=== PATIENT | female | born 1955 | race Caucasian/White ===

== ENCOUNTER → 2017-12-17 11:38 | Outpatient (CLI) | payer OTHER, SELFPAY ==
--- NOTE | 2017-12-17 | DI.MG.S_ITS ---
BILATERAL DIGITAL SCREENING MAMMOGRAM 3D/2D WITH CAD: 12/17/2017 CLINICAL: Routine screening. Comparison is made to exams dated: 10/18/2016 mammogram, 10/05/2015 mammogram, and 08/02/2014 mammogram - [facility]. There are scattered fibroglandular elements in both breasts. Current study was also evaluated with a Computer Aided Detection (CAD) system. No significant masses, calcifications, or other findings are seen in either breast. There has been no significant interval change. IMPRESSION: NEGATIVE There is no mammographic evidence of malignancy. A 1 year screening mammogram is recommended. This exam was interpreted at Station ID: [id number]. NOTE: For mammograms, a report in lay terms will be sent to the patient. Approximately 15% of breast malignancies will not be visualized mammographically. In the management of a palpable breast mass, a negative mammogram must not discourage biopsy of a clinically suspicious lesion. Electronically Signed By: Juni collado/[email or web address]:12/17/2017 21:54:53 letter sent: Normal Exam ACR BI-RADS Category 1: Negative [id number]
== END ==
PROVIDERS: Family Provider Psychiatry & Neurology Psychiatry; PCP Family Medicine; Visit Provider Family Medicine
DX: Z12.31 Encounter for screening mammogram for malignant neoplasm of breast (principal)
CPT/HCPCS: 77063; 77067

== ENCOUNTER → 2018-03-24 10:56 | Outpatient (CLI) | payer OTHER, SELFPAY ==
--- NOTE | 2018-03-24 | DI.RAD.S_ITS ---
PROCEDURE: XR CHEST 2V INDICATIONS: COUGH TECHNIQUE: 2 views of the chest were acquired. COMPARISON: [facility], , CHEST 1 VIEW, 06/07/2008, 18:00. FINDINGS: Surgical changes and devices: None. Lungs and pleura: Lungs are clear. No pleural effusions or pneumothorax. Mediastinum: Mediastinal contours are normal. Heart size is normal. Bones and chest wall: No suspicious bony abnormalities. Soft tissues appear unremarkable. IMPRESSION: No acute cardiopulmonary disease. Dictated by: Rosaura Mckinnon M.D. on 03/24/2018 at 12:14 Approved by: Rosaura Mckinonn M.D. on 03/24/2018 at 12:16
== END ==
PROVIDERS: Family Provider Psychiatry & Neurology Psychiatry; PCP Family Medicine; Visit Provider Family Medicine
DX: R05 Cough (principal)
CPT/HCPCS: 71046

== ENCOUNTER 2018-05-26 09:01 | Emergency (ER) | payer OTHER, SELFPAY ==
[2018-05-26 09:05] VITALS: BP 142/83; PULSE 104; RESP 19; TEMP 36.7; O2SAT 100
[2018-05-26 09:31] VITALS: BP 107/79; PULSE 98; RESP 22; O2SAT 96
--- NOTE | 2018-05-26 09:47 | ED.NEUROSD ---
HPI - Neuro Symptoms/Deficit General Chief Complaint: Neuro Symptoms/Deficit Stated Complaint: NUMBNESS/PAIN LEFT ARM/ARMPIT Time Seen by Provider: 05/26/18 09:15 Source: patient and old records reviewed Mode of arrival: ambulatory Limitations: no limitations History of Present Illness HPI Narrative: This a 63-year-old female comes to the emergency department with complaint of left-sided numbness in her face upper extremity and leg. Patient is also complaining of left groin pain patient states it all started on Friday. She states started Friday evening. She complains of pain mainly in the groin a little bit down the leg towards the toes but mostly in the groin. She states Friday she could lift her arm or leg. She states that she went to [facility] she told me she had a CT scan IV but they told her there was nothing they could do for her and sent her home. She is also complaining of tenderness, and that she can feel her heartbeat in her ears. She is also complaining of problems swallowing although she has been swallowing and eating food. Patient also is not having any difficulty with secretions in the department. No changes to speech. She states that she has not had any fevers, no chills. She has been taking seeing Dermatology and started spironolactone about 2 weeks ago. She denies any vision changes, no chest pain or shortness of breath, no nausea no vomiting. She is typically mildly constipated but is having regular bowel movements. She has had some frequency and chronic urinary incontinence but no new urinary changes. She denies any trauma or injuries. 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 She denies any swelling thought maybe there was a lump in her groin but she is unsure if there really is. Patient states she took some gabapentin last night this sort of made her loopy. She takes medication for ADHD, depression and has history of degenerative joint disease. She has had surgery for ovarian cyst, x2, cholecystectomy, hysterectomy and breast reduction. She quit smoking about 6 weeks ago. Denies any EtOH. She has CBD oil occasionally. Kaylin Blood is her primary care. On Anticoagulants: No Related Data Home Medications Medication Instructions Recorded Confirmed dextroamphetamine-amphetamine 10 mg PO BID #1 01/18/11 05/26/18 [Adderall XR] lamotrigine [Lamictal] 200 mg PO QDAY #0 01/18/11 05/26/18 desonide 1 applic TOPICAL BID 05/26/18 05/26/18 escitalopram oxalate [Lexapro] 20 mg PO DAILY 05/26/18 05/26/18 spironolactone 25 mg PO BID 05/26/18 05/26/18 Allergies Allergy/AdvReac Type Severity Reaction Status Date / Time codeine Allergy Severe THROAT Verified 05/26/18 09:20 CLOSES Penicillins Allergy Unknown Verified 05/26/18 09:20 Review of Systems Review of Systems ROS Unobtainable: All systems reviewed & are unremarkable except as noted in HPI and below Constitutional Denies body ache(s), Denies chills, Denies fever(s), Denies frequent falls, Denies headache(s), Denies lethargy and Denies weakness Eyes Denies change in vision ENT Ears, Nose, Mouth, and Throat: Denies abnormal hearing, Reports dysphagia (swallowing secretions), Denies vertigo, Denies dizziness, Denies headache(s), Denies hoarseness and Denies nasal congestion Cardiovascular Denies chest pain, Denies diaphoresis, Denies edema, Denies irregular heart rhythm, Denies leg edema, Denies lightheadedness, Denies radiating jaw, neck or arm pain, Denies palpitations, Denies dyspnea, Denies dyspnea on exertion and Denies orthopnea Respiratory Denies change in phlegm color, Denies chest congestion, Denies cough, Denies dyspnea, Denies dyspnea on exertion and Denies wheezing Gastrointestinal Gastrointestinal: Denies abdominal pain, Reports constipation (chronic, has regular bowel movements), Reports dysphagia (swallowing secretions), Denies diarrhea, Denies nausea and Denies vomiting Genitourinary Denies hematuria, Reports urinary frequency, Denies dysuria, Denies flank pain, Reports urinary incontinence (chronic) and Denies urinary urgency Musculoskeletal Reports as per HPI, Denies back pain, Denies arthralgias, Denies limited range of motion, Denies muscle cramps, Denies muscle weakness, Reports numbness and Reports other (groin pain in left) Integumentary/Breasts Denies rash, Denies unusual bruising and Denies wounds Neurologic Denies abnormal hearing, Denies abnormal speech, Denies vertigo, Denies dizziness, Denies frequent falls, Denies headache(s), Denies focal weakness, Reports numbness, Reports paresthesias (left face, arm, leg ) and Denies weakness Psychiatric Reports depression Endocrine Denies palpitations Allergic/Immunologic Denies wheezing PFSH Medical History (Updated 05/26/18 @ 10:01 by Leni Reeves DO) ADHD (Chronic) Depression (Chronic) H/O: hysterectomy (Chronic) Surgical History (Updated 05/26/18 @ 09:55 by Leni Reeves DO) History of (Chronic) Hx of cholecystectomy (Chronic) Status post breast reduction (Chronic) Social History (Updated 05/26/18 @ 09:55 by Leni Reeves DO) marital status: Smoking Status: Former smoker substance use type: marijuana Social History (Updated 05/26/18 @ 09:55 by Leni Reeves DO) marital status: Smoking Status: Former smoker substance use type: marijuana Exam Narrative Exam Narrative: GEN: well nourished, well appearing female, alert and oriented x 3, patient appears to be in mild distress. HEENT: Atraumatic, pupils are equal round reactive to light, extraocular movements are intact, nares are clear, TMs are clear with no fluid, there is no conjunctival pallor. Throat is clear without any exudates, erythema, tonsillar enlargement or uvular deviation, no facial droop. HEART: Regular rate and rhythm without murmur, clicks, rubs. Pulses are equal in upper and lower extremities LUNGS:Lungs clear to auscultation, no wheezes, rales, crackles, chest moves symmetrically ABD:bowel sounds normal, soft, non-tender, no guarding, rebound, rigidity, no masses noted, no hepatosplenomegaly :No CVA tenderness MSCL: Patient has some mild tenderness in the left inguinal region, patient has 2+ femoral pulse she has 2+ left lower extremity pulses well as right lower extremity dorsalis pedis and tibialis. no muscle atrophy, muscles strength 5/5 upper and lower extremities, patient appears uncomfortable when lifting left lower extremity. Mild tenderness over the left trochanter. full range of motion, patient ambulated into department. NEURO:CN 2-12 intact, sensation normal, reflexes 2/4 upper and lower extremities. finger nose finger test normal, heel do test normal. patient describes decreased sensation in comparison to right on the left face arm and lower extremity but has sensation to light touch. No dysarthria. Initial Vital Signs Initial Vital Signs: Vital Signs Temperature 98.1 F 05/26/18 09:05 Pulse Rate 104 H 05/26/18 09:05 Respiratory Rate 19 05/26/18 09:05 Blood Pressure 142/83 H 05/26/18 09:05 Pulse Oximetry 100 05/26/18 09:05 Scores NIH Stroke Scale Level of Conciousness: Alert, keenly responsive Ask month/age: Answers both questions correctly. Open/close eyes, close hand: Performs both tasks correctly Best gaze horizontal: Normal Visual evans: No visual loss Facial palsy: Normal symetrical movement Left arm drift: No drift for full 10 sec Right arm drift: No drift for full 10 sec Left leg drift: No drift for full 10 sec Right leg drift: No drift for full 10 sec Limb ataxia: Absent Sensory on face/arms/legs: Normal, no sensory loss Best language: No aphasia, normal Dysarthria: Normal Extinction or inattention: No abnormality Total NIH Stroke scale score: 0 Course Orders Ordered: ED Orders 05/26/18 11:40 Urine Culture Stat Urine Microscopic Stat Discontinued Medications Sodium Chloride (Normal Saline 0.9%) 1,000 mls @ 1,000 mls/hr IV BOLUS ONE Stop: 05/26/18 10:45 Last Infusion: 05/26/18 11:59 Dose: 0 mls/hr Admin: 05/26/18 10:18 Dose: 1,000 mls/hr Ketorolac Tromethamine (Toradol) 30 mg IV NOW ONE Stop: 05/26/18 09:47 Last Admin: 05/26/18 10:18 Dose: 30 mg Vital Signs - 8 hr 05/26/18 12:23 Temperature 98.1 F Pulse Rate 72 Respiratory Rate 18 Blood Pressure [Right Arm] 122/70 Pulse Oximetry 98 MDM - Neuro Symptoms/Deficit Lab Data Attestation: I reviewed the patient's lab results. Result diagrams: 05/26/18 09:20 05/26/18 09:20 Lab Results 05/26/18 05/26/18 05/26/18 Range/Units 09:20 09:20 09:20 WBC 7.8 (4.5-11.0) X10^3/uL RBC 5.13 (4.0-5.2) X10^6/uL Hgb 15.2 (12.0-16.0) g/dL Hct 45.4 (36-46) % MCV 88.5 (80-100) fL MCH 29.6 (26-34) PG MCHC 33.4 (30-36) % RDW 14.3 (11.6-14.8) % Plt Count 334 (150-400) X10^3/uL Neut % (Auto) 75.2 H (50-75) % Lymph % (Auto) 15.7 L (25-40) % Rains % (Auto) 8.9 (3-14) % Eos % (Auto) 0.0 L (2-4) % Baso % (Auto) 0.2 (0-2) % Neut # (Auto) 5900 (0209-5095) /uL Lymph # (Auto) 1200 (7566-1719) /uL Rains # (Auto) 700 (0-900) /uL Eos # (Auto) 0 (0-450) /uL Baso # (Auto) 0 (0-100) /uL PT 13.8 H (10.1-12.7) SECONDS INR 1.2 (0.9-1.3) APTT 35 (26.4-36.2) SECONDS Sodium 137 (137-145) mmol/L Potassium 4.0 (3.4-5.1) mmol/L Chloride 101 (98-107) mmol/L Carbon Dioxide 23 (22-32) mmol/L BUN 18 H (7-17) mg/dL Creatinine 0.80 (0.52-1.04) mg/dL Estimated GFR > 60.0 (>60) mL/min BUN/Creatinine Ratio 22.5 H (6-22) Glucose 92 (80-110) mg/dL Calcium 9.3 (8.4-10.2) mg/dL Total Bilirubin 0.6 (0.2-1.3) mg/dL AST 47 H (14-36) IU/L ALT 46 (9-52) IU/L Alkaline Phosphatase 152 H (38-126) U/L Total Protein 7.8 (6.3-8.2) g/dL Albumin 4.8 (3.5-5.0) g/dL Globulin 3.0 (1.7-4.1) g/dL Albumin/Globulin Ratio 1.6 (1.0-2.8) Urine RBC (0-5/HPF) Urine WBC (0-5/HPF) Ur Squamous Epith Cells Amorphous Sediment Urine Bacteria (None) Urine Mucus (Negative) Ur Culture Indicated? 05/26/18 Range/Units 11:40 WBC (4.5-11.0) X10^3/uL RBC (4.0-5.2) X10^6/uL Hgb (12.0-16.0) g/dL Hct (36-46) % MCV (80-100) fL MCH (26-34) PG MCHC (30-36) % RDW (11.6-14.8) % Plt Count (150-400) X10^3/uL Neut % (Auto) (50-75) % Lymph % (Auto) (25-40) % Rains % (Auto) (3-14) % Eos % (Auto) (2-4) % Baso % (Auto) (0-2) % Neut # (Auto) (9980-3094) /uL Lymph # (Auto) (2410-8550) /uL Rains # (Auto) (0-900) /uL Eos # (Auto) (0-450) /uL Baso # (Auto) (0-100) /uL PT (10.1-12.7) SECONDS INR (0.9-1.3) APTT (26.4-36.2) SECONDS Sodium (137-145) mmol/L Potassium (3.4-5.1) mmol/L Chloride (98-107) mmol/L Carbon Dioxide (22-32) mmol/L BUN (7-17) mg/dL Creatinine (0.52-1.04) mg/dL Estimated GFR (>60) mL/min BUN/Creatinine Ratio (6-22) Glucose (80-110) mg/dL Calcium (8.4-10.2) mg/dL Total Bilirubin (0.2-1.3) mg/dL AST (14-36) IU/L ALT (9-52) IU/L Alkaline Phosphatase (38-126) U/L Total Protein (6.3-8.2) g/dL Albumin (3.5-5.0) g/dL Globulin (1.7-4.1) g/dL Albumin/Globulin Ratio (1.0-2.8) Urine RBC None seen (0-5/HPF) Urine WBC 1-5/hpf (0-5/HPF) Ur Squamous Epith Cells 0-1 /hpf Amorphous Sediment 2+ Urine Bacteria Occasional (0-1) (None) Urine Mucus 2+ H (Negative) Ur Culture Indicated? Specimen cultured Urine Dip Bedside Urine Glucose Negative Bedside Urine Bilirubin + 1 Bedside Urine Ketone +++ 80 Urine Specific [place] 1.030 Bedside Urine Occult Blood - Negative Bedside Urine pH 6.0 Bedside Urine Protein + 30 Bedside Urine Urobilinogen +/- 1mg Bedside Urine Nitrite - Negative Bedside Urine Leukocytes +/- 15 Esterase Imaging Data dvt: Radiologist's impression: [address] [id number] Ultrasound Report Signed Patient: Jody Nelson EMR#: [id number] : [id number]:[id number] Age/Sex: 63 / FDate of Service: 05/26/18 Loc: ED Accession Number: [id number] Procedure: US periph venous low extrem lt Ordering Provider: Leni Reeves D.O. PROCEDURE: US PERIPH VENOUS LOW EXTREM LT INDICATIONS: PAIN TECHNIQUE: Real-time imaging, as well as color and pulse Doppler interrogation, were performed of the lower extremity deep veins from the inguinal ligament to the popliteal fossa. COMPARISON: None. FINDINGS: The common femoral, femoral and popliteal veins are normally compressible, and free of intraluminal thrombus. Color and pulse Doppler demonstrate normal phasic intraluminal flow. There is normal augmentation response to distal compression maneuver. IMPRESSION: No deep venous thrombosis in the left lower extremity. Dictated by: Rosaura Mckinnon M.D. on 05/26/2018 at 10:28 Approved by: Rosaura Mckinnon M.D. on 05/26/2018 at 10:29 xray hip : Radiologist's impression: [address] [address] XRay Report Signed Patient: Jody Nelson EMR#: [id number] : [id number]:[id number] Age/Sex: 63 / FDate of Service: 05/26/18 Loc: ED Accession Number: [id number] Procedure: XR hip w pel if done LT 2V Ordering Provider: Leni Reeves D.O. PROCEDURE: XR HIP W PEL IF DONE LT 2V INDICATIONS: left groin/leg pain TECHNIQUE: 2 views of the hip were acquired. COMPARISON: None. FINDINGS: Bones: No fractures or dislocations. No suspicious bony lesions. The visualized pelvic ring appears intact. Mild degenerative changes of the bilateral hips and sacroiliac joints appear to be present. Mild to moderate degenerative changes of the lower lumbar spine also appear to be present. Soft tissues: No suspicious soft tissue calcifications or masses. Surgical clips within the left hemipelvis are incidentally noted. Small peripherally calcified structures overlying the right gluteal region probably represent injection granulomas or sequela from previous injury. The bowel gas pattern appears to be within normal limits. Moderate residual stool may be present within the colon. IMPRESSION: Mild degenerative changes of the left hip. No fractures. Dictated by: Elmer Gordillo M.D. on 05/26/2018 at 10:01 Approved by: Elmer Gordillo M.D. on 05/26/2018 at 10:02 ECG Data Attestation: I personally reviewed and interpreted this ECG as follows: Prior ECG tracings: available for review Interpretation: Sinus rhythm rate of 99 P are 152 QRS of 101 and QTC of 384. No ST elevation or depression. Patient has some motion artifact. No major abnormalities from prior EKG. [facility] Narrative Medical decision making narrative: Discussed with patient her left groin pain and her numbness in her left face, upper extremity and lower extremity are likely not caused by the same issue. Waiting for records from [facility] patient had a head CT on prior evaluation, will reviews those records prior to repeating. EKG does not show any acute abnormalities. Discussed with patient will do some lab work. Ultrasound of left lower extremity as well as x-ray of the hip she has some very mild trochanter pain which could potentially be a bursitis. Patient given Toradol here in the department. Patient states she feels much better after Toradol. Ultrasound/DVT is negative, hip x-ray shows some degenerative changes but no clear osteomyelitis or fracture. Patient's lab work does not show any acute changes. Patient's records from [facility] were noted. Head CT was negative, patient did not have any other changes. She has had 4 days of paresthesias, her NIH is otherwise normal. Patient's groin pain and tingly numb feeling is likely not the same cause although they did start about the same time. Discussed with patient I would like her to follow up with her primary care. We discussed we could totally rule out causes such as stroke and I did recommend her taking at least an aspirin daily. Patient is comfortable with this plan. Discharge Plan Departure Patient Disposition: Home Clinical Impression: Left groin pain, Left sided numbness Discharge Date/Time: 05/26/18 12:25 Interventions: ED Discharge Assessment Last Done: 05/26/18 12:24 Instructions: DI for Groin Strain Activity Restrictions/Additional Instructions: Follow-up with your primary care in the next 5-7 days for recheck. Call for an appointment. Discuss if you need further evaluation or imaging for symptoms. A lamictal level is pending, it is a send out lab. Dr. Blood can follow up your level in the office. Continue ibuprofen to 800 mg every 8 hours as needed. I would recommend taking an aspirin 81mg daily until cleared by your physician. You may use ice and/or heat to the affected area as needed. Rest, decrease use of your left lower extremity. Return to the emergency department for fevers greater than 100.4, rapidly worsening symptoms, passing out, new chest pain, shortness of breath, new weakness, loss of sensation, difficulty with gripping or hang on to objects or other new or concerning symptoms. Prescriptions: No Action lamotrigine [Lamictal] 100 MG tablet 200 mg PO QDAY Qty: 0 RF: 0 dextroamphetamine-amphetamine [Adderall XR] 10 MG capsule,extended release 24hr 10 mg PO BID Qty: 1 RF: 0 spironolactone 25 mg Tablet 25 mg PO BID RF: 0 desonide 0.05 % lotion 1 applic topical BID RF: 0 escitalopram oxalate [Lexapro] 20 mg Tablet 20 mg PO DAILY RF: 0 Referrals: Carlie Blood MD [Primary Care Provider] -
--- NOTE | 2018-05-26 10:01 | ED_ITS ---
HPI - Neuro Symptoms/Deficit General Chief Complaint: Neuro Symptoms/Deficit Stated Complaint: NUMBNESS/PAIN LEFT ARM/ARMPIT Time Seen by Provider: 05/26/18 09:15 Source: patient and old records reviewed Mode of arrival: ambulatory Limitations: no limitations History of Present Illness HPI Narrative: This a 63-year-old female comes to the emergency department with complaint of left-sided numbness in her face upper extremity and leg. Patient is also complaining of left groin pain patient states it all started on Friday. She states started Friday evening. She complains of pain mainly in the groin a little bit down the leg towards the toes but mostly in the groin. She states Friday she could lift her arm or leg. She states that she went to [facility] she told me she had a CT scan IV but they told her there was nothing they could do for her and sent her home. She is also complaining of tenderness, and that she can feel her heartbeat in her ears. She is also complaining of problems swallowing although she has been swallowing and eating food. Patient also is not having any difficulty with secretions in the department. No changes to speech. She states that she has not had any fevers, no chills. She has been taking seeing Dermatology and started spironolactone about 2 weeks ago. She den ies any vision changes, no chest pain or shortness of breath, no nausea no vomiting. She is typically mildly constipated but is having regular bowel movements. She has had some frequency and chronic urinary incontinence but no new urinary changes. She denies any trauma or injuries. 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 She denies any swelling thought maybe there was a lump in her groin but she is unsure if there really is. Patient states she took some gabapentin last night this sort of made her loopy. She takes medication for ADHD, depression and has history of degenerative joint disease. She has had surgery for ovarian cyst, x2, cholecystectomy, hysterectomy and breast reduction. She quit smoking about 6 weeks ago. Denies any EtOH. She has CBD oil occasionally. Kaylin Blood is her primary care. On Anticoagulants: No Related Data Home Medications Medication Instructions Recorded Confirmed dextroamphetamine-amphetamine 10 mg PO BID #1 01/18/11 05/26/18 [Adderall XR] lamotrigine [Lamictal] 200 mg PO QDAY #0 01/18/11 05/26/18 desonide 1 applic TOPICAL BID 05/26/18 05/26/18 escitalopram oxalate [Lexapro] 20 mg PO DAILY 05/26/18 05/26/18 spironolactone 25 mg PO BID 05/26/18 05/26/18 Allergies Allergy/AdvReac Type Severity Reaction Status Date / Time codeine Allergy Severe THROAT Verified 05/26/18 09:20 CLOSES Penicillins Allergy Unknown Verified 05/26/18 09:20 Review of Systems Review of Systems ROS Unobtainable: All systems reviewed & are unremarkable except as noted in HPI and below Constitutional Denies body ache(s), Denies chills, Denies fever(s), Denies frequent falls, D enies headache(s), Denies lethargy and Denies weakness Eyes Denies change in vision ENT Ears, Nose, Mouth, and Throat: Denies abnormal hearing, Reports dysphagia (swallowing secretions), Denies vertigo, Denies dizziness, Denies headache(s), Denies hoarseness and Denies nasal congestion Cardiovascular Denies chest pain, Denies diaphoresis, Denies edema, Denies irregular heart rhythm, Denies leg edema, Denies lightheadedness, Denies radiating jaw, neck or arm pain, Denies palpitations, Denies dyspnea, Denies dyspnea on exertion and Denies orthopnea Respiratory Denies change in phlegm color, Denies chest congestion, Denies cough, Denies dyspnea, Denies dyspnea on exertion and Denies wheezing Gastrointestinal Gastrointestinal: Denies abdominal pain, Reports constipation (chronic, has regular bowel movements), Reports dysphagia (swallowing secretions), Denies diar haile, Denies nausea and Denies vomiting Genitourinary Denies hematuria, Reports urinary frequency, Denies dysuria, Denies flank pain, Reports urinary incontinence (chronic) and Denies urinary urgency Musculoskeletal Reports as per HPI, Denies back pain, Denies arthralgias, Denies limited range of motion, Denies muscle cramps, Denies muscle weakness, Reports numbness and Reports other (groin pain in left) Integumentary/Breasts Denies rash, Denies unusual bruising and Denies wounds Neurologic Denies abnormal hearing, Denies abnormal speech, Denies vertigo, Denies dizziness, Denies frequent falls, Denies headache(s), Denies focal weakness, Reports numbness, Reports paresthesias (left face, arm, leg ) and Denies weakness Psychiatric Reports depression Endocrine Denies palpitations Allergic/Immunologic Denies wheezing PFSH Medical History (Updated 05/26/18 @ 10:01 by Leni Reeves DO) ADHD (Chronic) Depression (Chronic) H/O: hysterectomy (Chronic) Surgical History (Updated 05/26/18 @ 09:55 by Leni Reeves DO) History of (Chronic) Hx of cholecystectomy (Chronic) Status post breast reduction (Chronic) Social History (Updated 05/26/18 @ 09:55 by Leni Reeves DO) marital status: Smoking Status: Former smoker substance use type: marijuana Social History (Updated 05/26/18 @ 09:55 by Leni Reeves DO) marital status: Smoking Status: Former smoker substance use type: marijuana Exam Narrative Exam Narrative: GEN: well nourished, well appearing female, alert and oriented x 3, patient appears to be in mild distress. HEENT: Atraumatic, pupils are equal round reactive to light, extraocular movements are intact, nares are clear, TMs are clear with no fluid, there is no conjunctival pallor. Throat is clear without any exudates, erythema, tonsillar enlargement or uvular deviation, no facial droop. HEART: Regular rate and rhythm without murmur, clicks, rubs. Pulses are equal in upper and lower extremities LUNGS:Lungs clear to auscultation, no wheezes, rales, crackles, chest moves symmetrically ABD:bowel sounds normal, soft, non-tender, no guarding, rebound, rigidity, no masses noted, no hepatosplenomegaly :No CVA tenderness MSCL: Patient has some mild tenderness in the left inguinal region, patient has 2+ femoral pulse she has 2+ left lower extremity pulses well as right lower extremity dorsalis pedis and tibialis. no muscle atrophy, muscles strength 5/5 upper and lower extremities, patient appears uncomfortable when lifting left lower extremity. Mild tenderness over the left trochanter. full range of yasemin on, patient ambulated into department. NEURO:CN 2-12 intact, sensation normal, reflexes 2/4 upper and lower extremities. finger nose finger test normal, heel do test normal. patient describes decreased sensation in comparison to right on the left face arm and lower extremity but has sensation to light touch. No dysarthria. Initial Vital Signs Initial Vital Signs: Vital Signs Temperature 98.1 F 05/26/18 09:05 Pulse Rate 104 H 05/26/18 09:05 Respiratory Rate 19 05/26/18 09:05 Blood Pressure 142/83 H 05/26/18 09:05 Pulse Oximetry 100 05/26/18 09:05 Scores NIH Stroke Scale Level of Conciousness: Alert, keenly responsive Ask month/age: Answers both questions correctly. Open/close eyes, close hand: Performs both tasks correctly Best gaze horizontal: Normal Visual evans: No visual loss Facial palsy: Normal symetrical movement Left arm drift: No drift for full 10 sec Right arm drift: No drift for full 10 sec Left leg drift: No drift for full 10 sec Right leg drift: No drift for full 10 sec Limb ataxia: Absent Sensory on face/arms/legs: Normal, no sensory loss Best language: No aphasia, normal Dysarthria: Normal Extinction or inattention: No abnormality Total NIH Stroke scale score: 0 Course Orders Ordered: ED Orders 05/26/18 11:40 Urine Culture Stat Urine Microscopic Stat Discontinued Medications Sodium Chloride (Normal Saline 0.9%) 1,000 mls @ 1,000 mls/hr IV BOLUS ONE Stop: 05/26/18 10:45 Last Infusion: 05/26/18 11:59 Dose: 0 mls/hr Admin: 05/26/18 10:18 Dose: 1,000 mls/hr Ketorolac Tromethamine (Toradol) 30 mg IV NOW ONE Stop: 05/26/18 09:47 Last Admin: 05/26/18 10:18 Dose: 30 mg Vital Signs - 8 hr 05/26/18 12:23 Temperature 98.1 F Pulse Rate 72 Respiratory Rate 18 Blood Pressure [Right Arm] 122/70 Pulse Oximetry 98 MDM - Neuro Symptoms/Deficit Lab Data Attestation: I reviewed the patient's lab results. Result diagrams: 05/26/18 09:20 05/26/18 09:20 Lab Results 05/26/18 05/26/18 05/26/18 Range/Units 09:20 09:20 09:20 WBC 7.8 (4.5-11.0) X10^3/uL RBC 5.13 (4.0-5.2) X10^6/uL Hgb 15.2 (12.0-16.0) g/dL Hct 45.4 (36-46) % MCV 88.5 (80-100) fL MCH 29.6 (26-34) PG MCHC 33.4 (30-36) % RDW 14.3 (11.6-14.8) % Plt Count 334 (150-400) X10^3/uL Neut % (Auto) 75.2 H (50-75) % Lymph % (Auto) 15.7 L (25-40) % [place]rill % (Auto) 8.9 (3-14) % Eos % (Auto) 0.0 L (2-4) % Baso % (Auto) 0.2 (0-2) % Neut # (Auto) 5900 (5313-9848) /uL Lymph # (Auto) 1200 (4313-4609) /uL [place]rill # (Auto) 700 (0-900) /uL Eos # (Auto) 0 (0-450) /uL Baso # (Auto) 0 (0-100) /uL PT 13.8 H (10.1-12.7) SECONDS INR 1.2 (0.9-1.3) APTT 35 (26.4-36.2) SECONDS Sodium 137 (137-145) mmol/L Potassium 4.0 (3.4-5.1) mmol/L Chloride 101 (98-107) mmol/L Carbon Dioxide 23 (22-32) mmol/L BUN 18 H (7-17) mg/dL Creatinine 0.80 (0.52-1.04) mg/dL Estimated GFR > 60.0 (>60) mL/min BUN/Creatinine Ratio 22.5 H (6-22) Glucose 92 (80-110) mg/dL Calcium 9.3 (8.4-10.2) mg/dL Total Bilirubin 0.6 (0.2-1.3) mg/dL AST 47 H (14-36) IU/L ALT 46 (9-52) IU/L Alkaline Phosphatase 152 H (38-126) U/L Total Protein 7.8 (6.3-8.2) g/dL Albumin 4.8 (3.5-5.0) g/dL Globulin 3.0 (1.7-4.1) g/dL Albumin/Globulin Ratio 1.6 (1.0-2.8) Urine RBC (0-5/HPF) Urine WBC (0-5/HPF) Ur Squamous Epith Cells Amorphous Sediment Urine Bacteria (None) Urine Mucus (Negative) Ur Culture Indicated? 05/26/18 Range/Units 11:40 WBC (4.5-11.0) X10^3/uL RBC (4.0-5.2) X10^6/uL Hgb (12.0-16.0) g/dL Hct (36-46) % MCV (80-100) fL MCH (26-34) PG MCHC (30-36) % RDW (11.6-14.8) % Plt Count (150-400) X10^3/uL Neut % (Auto) (50-75) % Lymph % (Auto) (25-40) % Morrill % (Auto) (3-14) % Eos % (Auto) (2-4) % Baso % (Auto) (0-2) % Neut # (Auto) (2768-0725) /uL Lymph # (Auto) (1114-8771) /uL Morrill # (Auto) (0-900) /uL Eos # (Auto) (0-450) /uL Baso # (Auto) (0-100) /uL PT (10.1-12.7) SECONDS INR (0.9-1.3) APTT (26.4-36.2) SECONDS Sodium (137-145) mmol/L Potassium (3.4-5.1) mmol/L Chloride (98-107) mmol/L Carbon Dioxide (22-32) mmol/L BUN (7-17) mg/dL Creatinine (0.52-1.04) mg/dL Estimated GFR (>60) mL/min BUN/Creatinine Ratio (6-22) Glucose (80-110) mg/dL Calcium (8.4-10.2) mg/dL Total Bilirubin (0.2-1.3) mg/dL AST (14-36) IU/L ALT (9-52) IU/L Alkaline Phosphatase (38-126) U/L Total Protein (6.3-8.2) g/dL Albumin (3.5-5.0) g/dL Globulin (1.7-4.1) g/dL Albumin/Globulin Ratio (1.0-2.8) Urine RBC None seen (0-5/HPF) Urine WBC 1-5/hpf (0-5/HPF) Ur Squamous Epith Cells 0-1 /hpf Amorphous Sediment 2+ Urine Bacteria Occasional (0-1) (None) Urine Mucus 2+ H (Negative) Ur Culture Indicated? Specimen cultured Urine Dip Bedside Urine Glucose Negative Bedside Urine Bilirubin + 1 Bedside Urine Ketone +++ 80 Urine Specific [place] 1.030 Bedside Urine Occult Blood - Negative Bedside Urine pH 6.0 Bedside Urine Protein + 30 Bedside Urine Urobilinogen +/- 1mg Bedside Urine Nitrite - Negative Bedside Urine Leukocytes +/- 15 Esterase Imaging Data dvt: Radiologist's impression: [address] [address] Ultrasound Report Signed Patient: Jody Nelson EMR#: [id number] : [id number]:[id number] Age/Sex: 63 / FDate of Service: 05/26/18 Loc: ED Accession Number: [id number] Procedure: US perip venous low extrem lt Ordering Provider: Leni Reeves D.O. PROCEDURE: US PERIPH VENOUS LOW EXTREM LT INDICATIONS: PAIN TECHNIQUE: Real-time imaging, as well as color and pulse Doppler interrogation, were performed of the lower extremity deep veins from the inguinal ligament to the popliteal fossa. COMPARISON: None. FINDINGS: The common femoral, femoral and popliteal veins are normally compressible, and free of intraluminal thrombus. Color and pulse Doppler demonstrate normal phasic intraluminal flow. There is normal augmentation response to distal compression maneuver. IMPRESSION: No deep venous thrombosis in the left lower extremity. Dictated by: Rosaura Mckinnon M.D. on 05/26/2018 at 10:28 Approved by: Rosaura Mckinnon M.D. on 05/26/2018 at 10:29 xray hip : Radiologist's impression: [address] [address] XRay Report Signed Patient: Jody Nelson EMR#: [id number] : [id number]:[id number] Age/Sex: 63 / FDate of Service: 05/26/18 Loc: ED Accession Number: [id number] Procedure: XR hip w pel if done LT 2V Ordering Provider: Leni Reeves D.O. PROCEDURE: XR HIP W PEL IF DONE LT 2V INDICATIONS: left groin/leg pain TECHNIQUE: 2 views of the hip were acquired. COMPARISON: None. FINDINGS: Bones: No fractures or dislocations. No suspicious bony lesions. The visualized pelvic ring appears intact. Mild degenerative changes of the bilateral hips and sacroiliac joints appear to be present. Mild to moderate degenerative changes of the lower lumbar spine also appear to be present. Soft tissues: No suspicious soft tissue calcifications or masses. Surgical clips within the left hemipelvis are incidentally noted. Small peripherally calcified structures overlying the right gluteal region probably represent injection granulomas or sequela from previous injury. The bowel gas pattern appears to be within normal limits. Moderate residual stool may be present within the colon. IMPRESSION: Mild degenerative changes of the left hip. No fractures. Dictated by: Elmer Gordillo M.D. on 05/26/2018 at 10:01 Approved by: Elmer Gordillo M.D. on 05/26/2018 at 10:02 ECG Data Attestation: I personally reviewed and interpreted this ECG as follows: Prior ECG tracings: available for review Interpretation: Sinus rhythm rate of 99 P are 152 QRS of 101 and QTC of 384. No ST elevation or depression. Patient has some motion artifact. No major abnormalities from prior EKG. [facility] Narrative Medical decision making narrative: Discussed with patient her left groin pain and her numbness in her left face, upper extremity and lower extremity are likely not caused by the same issue. Waiting for records from [facility] patient had a head CT on prior evaluation, will reviews those records prior to repeating. EKG does not show any acute abnormalities. Discussed with patient will do some lab work. Ultrasound of left lower extremity as well as x-ray of the hip she has some very mild trochanter pain which could potentially be a bursitis. Patient given Toradol here in the department. Patient states she feels much better after Toradol. Ultrasound/DVT is negative, hip x-ray shows some degenerative changes but no clear osteomyelitis or fracture. Patient's lab work does not show any acute changes. Patient's records from [facility] were noted. Head CT was negative, patient did not have any other changes. She has had 4 days of paresthesias, her NIH is otherwise normal. Patient's groin pain and tingly numb feeling is likely not the same cause although they did start about the same time. Discussed with patient I would like her to follow up with her primary care. We discussed we could totally rule out causes such as stroke and I did recommend her taking at least an aspirin daily. Patient is comfortable with this plan. Discharge Plan Departure Patient Disposition: Home Clinical Impression: Left groin pain, Left sided numbness Discharge Date/Time: 05/26/18 12:25 Interventions: ED Discharge Assessment Last Done: 05/26/18 12:24 Instructions: DI for Groin Strain Activity Restrictions/Additional Instructions: Follow-up with your primary care in the next 5-7 days for recheck. Call for an appointment. Discuss if you need further evaluation or imaging for symptoms. A lamictal level is pending, it is a send out lab. Dr. Blood can follow up your level in the office. Continue ibuprofen to 800 mg every 8 hours as needed. I would recommend taking an aspirin 81mg daily until cleared by your physician. You may use ice and/or heat to the affected area as needed. Rest, decrease use of your left lower extremity. Return to the emergency department for fevers greater than 100.4, rapidly worsening symptoms, passing out, new chest pain, shortness of breath, new weakness, loss of sensation, difficulty with gripping or hang on to objects or other new or concerning symptoms. Prescriptions: No Action lamotrigine [Lamictal] 100 MG tablet 200 mg PO QDAY Qty: 0 RF: 0 dextroamphetamine-amphetamine [Adderall XR] 10 MG capsule,extended release 24hr 10 mg PO BID Qty: 1 RF: 0 spironolactone 25 mg Tablet 25 mg PO BID RF: 0 desonide 0.05 % lotion 1 applic topical BID RF: 0 escitalopram oxalate [Lexapro] 20 mg Tablet 20 mg PO DAILY RF: 0 Referrals: Carlie Blood MD [Primary Care Provider] -
[2018-05-26 10:06] VITALS: BP 119/73; PULSE 96; RESP 14; O2SAT 96
[2018-05-26 10:11] LABS: INR 1.2 (0.9-1.3); Prothrombin Time 13.8 SECONDS (10.1-12.7)
[2018-05-26 10:13] LABS: PTT Partial Thromboplastin Tim 35 SECONDS (26.4-36.2)
[2018-05-26 10:17] LABS: Alanine Aminotransferase 46 IU/L (9-52); Albumin 4.8 g/dL (3.5-5.0); Albumin Globulin Ratio 1.6 (1.0-2.8); Alkaline Phosphatase 152 U/L (38-126); Aspartate Aminotransferase 47 IU/L (14-36); BUN Creatinine Ratio 22.5 (6-22); Bilirubin Total 0.6 mg/dL (0.2-1.3); Blood Urea Nitrogen 18 mg/dL (7-17); Calcium 9.3 mg/dL (8.4-10.2); Carbon Dioxide 23 mmol/L (22-32); Chloride 101 mmol/L (98-107); Estimated Glomerular Filt Rate > 60.0 mL/min (>60); Glucose 92 mg/dL (80-110); HEMOLYSIS 20 (0-50); Sodium 137 mmol/L (137-145); Total Protein 7.8 g/dL (6.3-8.2)
[2018-05-26 10:18] LABS: Add Manual Diff / Slide Review NO; Basophils Absolute Auto 0 /uL (0-100); Basophils Percent Auto 0.2 % (0-2); Eosinophils Absolute Auto 0 /uL (0-450); Hematocrit 45.4 % (36-46); Hemoglobin 15.2 g/dL (12.0-16.0); Lymphocytes Absolute Auto 1200 /uL (1100-4500); Lymphocytes Percent Auto 15.7 % (25-40); Mean Corpuscular HGB Conc 33.4 % (30-36); Mean Corpuscular Hemoglobin 29.6 PG (26-34); Mean Corpuscular Volume 88.5 fL (80-100); Monocytes Absolute Auto 700 /uL (0-900); Monocytes Percent Auto 8.9 % (3-14); Neutrophils Absolute Auto 5900 /uL (1500-7000); Neutrophils Percent Auto 75.2 % (50-75); Platelet Count 334 X10^3/uL (150-400); Red Blood Cell Count 5.13 X10^6/uL (4.0-5.2); Red Cell Distribution Width 14.3 % (11.6-14.8); White Blood Cell Count 7.8 X10^3/uL (4.5-11.0)
[2018-05-26] MEDS: KETOROLAC 60 MG/2 ML VIAL 30 MG IV (10:18)
[2018-05-26] MEDS: SODIUM CHLORIDE 0.9% 1,000 ML 1000 ML IV (10:18)
[2018-05-26 10:31] VITALS: BP 122/62; PULSE 88; RESP 13; O2SAT 97
[2018-05-26 11:12] VITALS: BP 118/65; PULSE 88; RESP 87; O2SAT 94
[2018-05-26 11:41] LABS: RBC Urine None Seen (0-5/HPF)
[2018-05-26 11:51] LABS: Amorphous Sediment Urine 2+; Bacteria Urine Occasional (0-1); Culture Indicated Urine Specimen Cultured; Mucus Urine 2+ (Negative); Squamous Epithelial Cell Urine 0-1 /HPF; WBC Urine 1-5/HPF (0-5/HPF)
[2018-05-26 12:23] VITALS: BP 122/70; PULSE 72; RESP 18; TEMP 36.7; O2SAT 98
[2018-05-30 18:21] LABS: Lamotrigine Lamictal 10.6 mcg/mL (4.0-18.0)
== END 2018-05-26 12:25 | disposition home or self-care (01) ==
PROVIDERS: Emergency Provider Emergency Medicine; Family Provider Psychiatry & Neurology Psychiatry; PCP Family Medicine
DX: R10.32 Left lower quadrant pain (principal); R20.0 Anesthesia of skin; M79.602 Pain in left arm; M79.605 Pain in left leg
CPT/HCPCS: 36591; 73502; 80053; 80175; 81003; 81015; 85025; 85610; 85730; 87077; 87086; 87147; 93005; 93971; 96361; 96374; 99283; 99285; J1885

== ENCOUNTER → 2018-08-10 14:07 | Outpatient (CLI) | payer OTHER, SELFPAY ==
--- NOTE | 2018-08-10 | DI.RAD.S_ITS ---
PROCEDURE: XR RIBS RT MIN 3V W CXR 1V INDICATIONS: RIGHT RIB PAIN TECHNIQUE: 2 views of the right ribs were acquired, along with a single view chest. COMPARISON: None. FINDINGS: Surgical changes and devices: None. Bones and chest wall: Chronic appearing right third rib fracture with callus formation. No acute displaced or definite rib fractures or dislocations. No suspicious bony lesions. Overlying soft tissues appear unremarkable. Lungs and pleura: No pleural effusions or pneumothorax. Lungs appear clear. Mediastinum: Mediastinal contours appear normal. Heart size is normal. IMPRESSION: No acute rib fracture identified. Chronic appearing right third rib fracture. Dictated by: Mukesh Gaxiola M.D. on 08/10/2018 at 16:38 Approved by: Mukesh Gaxiola M.D. on 08/10/2018 at 16:41
== END ==
PROVIDERS: Family Provider Psychiatry & Neurology Psychiatry; PCP Family Medicine; Visit Provider Family Medicine
DX: R07.81 Pleurodynia (principal); S22.31XA Fracture of one rib, right side, initial encounter for closed fracture
CPT/HCPCS: 71101

== ENCOUNTER → 2018-10-06 09:42 | Outpatient (CLI) | payer OTHER, SELFPAY | PROVIDERS: Family Provider Psychiatry & Neurology Psychiatry; PCP Family Medicine; Visit Provider Family Medicine | DX: M85.851 Other specified disorders of bone density and structure, right thigh (principal); Z78.0 Asymptomatic menopausal state; M45.9 Ankylosing spondylitis of unspecified sites in spine; Z82.62 Family history of osteoporosis; F17.200 Nicotine dependence, unspecified, uncomplicated | CPT/HCPCS: 77080 ==

== ENCOUNTER → 2019-02-02 14:16 | Outpatient (CLI) | payer OTHER, SELFPAY ==
--- NOTE | 2019-02-02 | DI.MG.S_ITS ---
BILATERAL DIGITAL SCREENING MAMMOGRAM 3D/2D WITH CAD: 02/02/2019 Comparison is made to exams dated: 12/17/2017 mammogram, 10/18/2016 mammogram, and 10/05/2015 mammogram - [facility]. There are scattered fibroglandular elements in both breasts. Current study was also evaluated with a Computer Aided Detection (CAD) system. No significant masses, calcifications, or other findings are seen in either breast. There has been no significant interval change. IMPRESSION: NEGATIVE There is no mammographic evidence of malignancy. A 1 year screening mammogram is recommended. This exam was interpreted at Station ID: [id number]. NOTE: For mammograms, a report in lay terms will be sent to the patient. Approximately 15% of breast malignancies will not be visualized mammographically. In the management of a palpable breast mass, a negative mammogram must not discourage biopsy of a clinically suspicious lesion. Electronically Signed By: Emily stone/evaristo:02/02/2019 16:47:09 letter sent: Normal Exam ACR BI-RADS Category 1: Negative [id number]
--- NOTE | 2019-02-02 | DI.US.S_ITS ---
PROCEDURE: US ABDOMEN COMPLETE INDICATIONS: ELEVATED ALKALINE PHOSPHATASE TECHNIQUE: Real-time scanning was performed of the abdominal and retroperitoneal organs, with image documentation. COMPARISON: None. FINDINGS: Liver: Liver is normal in size and homogeneous in echotexture. Right hepatic lobe cyst measuring 12 mm. Gallbladder: Resected. Biliary ducts: Intrahepatic bile ducts are non-dilated. Extrahepatic bile duct caliber measures 8.1 mm. Normal is 6-7 mm or less in diameter, or 10 mm or less post-cholecystectomy. Pancreas: Visualized portions of the pancreas are sonographically normal. Spleen: Spleen is normal in size and homogeneous in echotexture. Kidneys: Kidneys are normal in size and echotexture. Right kidney measures 10.3 cm long; left kidney measures 9.4 cm long. No hydronephrosis or nephrolithiasis. No solid masses. Right renal cortical thinning. Aorta: Visualized aorta is normal in caliber at less than 3 cm. Iliacs: Proximal common iliac arteries are normal in caliber at less than 2.5 cm. IVC: Intrahepatic inferior vena cava is patent. Miscellaneous: No free abdominal fluid. IMPRESSION: Hepatic cyst and right renal cortical thinning. Dictated by: Cecil ESCOTO Interpreted: Namrata Smith MD on 02/02/2019 at 17:25 Approved by: Namrata Smith M.D. on 02/02/2019 at 18:38
== END ==
PROVIDERS: Family Provider Psychiatry & Neurology Psychiatry; PCP Family Medicine; Visit Provider Family Medicine
DX: Z12.31 Encounter for screening mammogram for malignant neoplasm of breast (principal); R74.8 Abnormal levels of other serum enzymes; K76.89 Other specified diseases of liver; Z90.49 Acquired absence of other specified parts of digestive tract
CPT/HCPCS: 76700; 77063; 77067

== ENCOUNTER → 2019-07-16 10:34 | Outpatient (CLI) | payer OTHER, MEDICAID, SELFPAY ==
--- NOTE | 2019-07-16 | DI.RAD.S_ITS ---
PROCEDURE: XR FOOT RT MIN 3V INDICATIONS: pain in unspecified joint TECHNIQUE: 3 views of the foot were acquired. COMPARISON: None. FINDINGS: Bones: No fractures or dislocations. No suspicious bony lesions. Diffuse interphalangeal joint degeneration. Soft tissues: No tibiotalar joint effusion. Achilles tendon appears normal. IMPRESSION: Mild right forefoot osteoarthritis Dictated by: Mukesh Gaxiola M.D. on 07/16/2019 at 15:27 Approved by: Mukesh Gaxiola M.D. on 07/16/2019 at 15:30
--- NOTE | 2019-07-16 | DI.RAD.S_ITS ---
PROCEDURE: XR FOOT LT MIN 3V INDICATIONS: pain in unspecified joint TECHNIQUE: 3 views of the foot were acquired. COMPARISON: None. FINDINGS: Bones: No fractures or dislocations. No suspicious bony lesions. Mild first MTP joint degeneration. Diffuse interphalangeal spurring and sclerosis Soft tissues: No tibiotalar joint effusion. Achilles tendon appears normal. IMPRESSION: Mild left foot joint degeneration as above Dictated by: Mukesh Gaxiola M.D. on 07/16/2019 at 16:20 Approved by: Mukesh Gaxiola M.D. on 07/16/2019 at 16:23
--- NOTE | 2019-07-16 | DI.RAD.S_ITS ---
PROCEDURE: XR KNEE LT 3V INDICATIONS: PAIN IN UNSPECIFIED JOINT TECHNIQUE: 3 views of the knee were acquired. COMPARISON: None. FINDINGS: Bones: No fractures or dislocations. No suspicious bony lesions. Scattered degenerative subchondral sclerosis and spurring. Soft tissues: No joint effusion. No suspicious soft tissue calcifications. IMPRESSION: Degenerative changes as above. If the patient's pain or other symptoms persist, consider further evaluation with MRI Dictated by: Mukesh Gaxiola M.D. on 07/16/2019 at 13:47 Approved by: Mukesh Gaxiola M.D. on 07/16/2019 at 13:49
--- NOTE | 2019-07-16 | DI.RAD.S_ITS ---
PROCEDURE: XR HAND RT MIN 3V INDICATIONS: Pain in unspecified joint TECHNIQUE: 3 views of the hand(s) acquired. COMPARISON: None. FINDINGS: Bones: No fractures or dislocations. Carpal bones are normally aligned. No suspicious bony lesions. First CMC and triscaphe joint degeneration. Degenerative changes seen at the interphalangeal joints. Few marginal lucencies project at the DIP joint of the index and middle fingers, and at the base of the index finger proximal phalanx. Soft tissues: No suspicious soft tissue calcifications. IMPRESSION: Diffuse right hand osteoarthritis Dictated by: Mukesh Gaxiola M.D. on 07/16/2019 at 13:26 Approved by: Mukesh Gaxiola M.D. on 07/16/2019 at 13:28
--- NOTE | 2019-07-16 | DI.RAD.S_ITS ---
PROCEDURE: XR HAND LT MIN 3V INDICATIONS: Pain in unspecified joint TECHNIQUE: 3 views of the hand(s) acquired. COMPARISON: None. FINDINGS: Bones: No fractures or dislocations. Carpal bones are normally aligned. No suspicious bony lesions. First CMC and triscaphe joint degeneration. Diffuse interphalangeal joint degeneration. Soft tissues: No suspicious soft tissue calcifications. IMPRESSION: Diffuse degenerative changes. Dictated by: Mukesh Gaxiola M.D. on 07/16/2019 at 13:23 Approved by: Mukesh Gaxiola M.D. on 07/16/2019 at 13:26
--- NOTE | 2019-07-16 | DI.RAD.S_ITS ---
PROCEDURE: XR KNEE RT 3V INDICATIONS: PAIN IN UNSPECIFIED JOINT TECHNIQUE: 3 views of the knee were acquired. COMPARISON: None. FINDINGS: Bones: No fractures or dislocations. No suspicious bony lesions. Scattered degenerative subchondral sclerosis and spurring. No definite joint space narrowing Soft tissues: No joint effusion. No suspicious soft tissue calcifications. IMPRESSION: Scattered degenerative spurring and sclerosis. Dictated by: Mukesh Gaxiola M.D. on 07/16/2019 at 13:49 Approved by: Mukesh Gaxiola M.D. on 07/16/2019 at 14:07
--- NOTE | 2019-07-16 | DI.RAD.S_ITS ---
PROCEDURE: XR SACROILIAC JOINT MIN 3V INDICATIONS: Pain in unspecified joint TECHNIQUE: 3 views of the sacroiliac joints were acquired. COMPARISON: None. FINDINGS: Bones: No ankylosis is seen. There is bilateral periarticular sclerosis and spurring at the SI joints, although right greater left. Focal lucencies project in the region of the inferior right SI joint however not definitely confirmed on all projections No suspicious bony lesions. No fractures. Soft tissues: Overlying bowel gas pattern is normal. No suspicious soft tissue densities. IMPRESSION: Bilateral sacroiliac sclerosis and spurring. No definite joint space narrowing or ankylosis Possible focal lucencies at the inferior aspect of the right SI joint, although technically indeterminate as above. Further evaluation with MRI could be performed as clinically warranted Dictated by: Mukesh Gaxiola M.D. on 07/16/2019 at 15:30 Approved by: Mukesh Gaxiola M.D. on 07/16/2019 at 15:33
[2019-07-16 12:26] LABS: Add Manual Diff / Slide Review NO; Basophils Absolute Auto 0 /uL (0-100); Basophils Percent Auto 0.4 % (0-2); Eosinophils Absolute Auto 0 /uL (0-450); Hematocrit 43.3 % (36-46); Hemoglobin 14.7 g/dL (12.0-16.0); Lymphocytes Absolute Auto 1700 /uL (1100-4500); Lymphocytes Percent Auto 26.2 % (25-40); Mean Corpuscular Hemoglobin 30.5 PG (26-34); Mean Corpuscular Volume 89.6 fL (80-100); Monocytes Absolute Auto 400 /uL (0-900); Monocytes Percent Auto 6.1 % (3-14); Neutrophils Absolute Auto 4400 /uL (1500-7000); Neutrophils Percent Auto 67.3 % (50-75); Platelet Count 382 X10^3/uL (150-400); Red Blood Cell Count 4.84 X10^6/uL (4.0-5.2); Red Cell Distribution Width 14.4 % (11.6-14.8); White Blood Cell Count 6.6 X10^3/uL (4.5-11.0)
[2019-07-16 12:43] LABS: Alanine Aminotransferase 20 IU/L (<35); Albumin 4.8 g/dL (3.5-5.0); Albumin Globulin Ratio 1.4 (1.0-2.8); Alkaline Phosphatase 141 U/L (38-126); Aspartate Aminotransferase 34 IU/L (14-36); BUN Creatinine Ratio 22.7 (6-22); Bilirubin Total 0.6 mg/dL (0.2-1.3); Blood Urea Nitrogen 17 mg/dL (7-17); C-Reactive Protein Quant 1.5 mg/dL (<1.0); Calcium 10.2 mg/dL (8.4-10.2); Carbon Dioxide 29 mmol/L (22-32); Chloride 103 mmol/L (98-107); Estimated Glomerular Filt Rate > 60.0 mL/min (>60); Globulin 3.4 g/dL (1.7-4.1); Glucose 94 mg/dL (80-110); HEMOLYSIS < 15 (0-50); Potassium 5.3 mmol/L (3.4-5.1); Sodium 140 mmol/L (137-145); Total Protein 8.2 g/dL (6.3-8.2)
[2019-07-16 12:58] LABS: Erythrocyte Sedimentation Rate 17 MM/HR (0-20)
== END ==
PROVIDERS: Family Provider Psychiatry & Neurology Psychiatry; PCP Family Medicine; Referring Provider Internal Medicine Rheumatology; Visit Provider Family Medicine
DX: L40.0 Psoriasis vulgaris (principal); M79.672 Pain in left foot; M79.671 Pain in right foot; M25.561 Pain in right knee; M25.562 Pain in left knee; M79.641 Pain in right hand; M79.642 Pain in left hand; M25.50 Pain in unspecified joint
CPT/HCPCS: 36415; 72202; 73130; 73562; 73630; 80053; 85025; 85651; 86140

== ENCOUNTER → 2020-02-24 09:21 | Outpatient (CLI) | payer OTHER, MEDICAID, SELFPAY ==
--- NOTE | 2020-02-24 09:25 | DI.US.S_ITS ---
PROCEDURE: US ABDOMEN COMPLETE INDICATIONS: ELEVATED LIVER FUNCTION TESTS. HEPATIC CYST. TECHNIQUE: Real-time scanning was performed of the abdominal and retroperitoneal organs, with image documentation. COMPARISON: [facility], US, US ABDOMEN COMPLETE, 02/02/2019, 15:41. FINDINGS: Liver: Liver is normal in size and measures 15.9 cm in length. Diffusely increased liver parenchymal echotexture is seen suggestive of hepatic steatosis. There is a 1.3 x 1.1 x 1.1 cm cystic structure seen in right hepatic lobe with thin internal septation. No internal vascularity is seen. Gallbladder: Gallbladder is surgically absent. Biliary ducts: Intrahepatic bile ducts are non-dilated. Extrahepatic bile duct caliber measures 9.3 mm. Normal is 6-7 mm or less in diameter, or 10 mm or less post-cholecystectomy. Pancreas: Visualized portions of the pancreas show mildly increased pancreatic parenchymal echotexture. No discrete pancreatic lesion is seen. No peripancreatic fluid collection. Spleen: Spleen is normal in size and homogeneous in echotexture. Kidneys: Kidneys are normal in size and echotexture. Right kidney measures 10.1 cm long; left kidney measures 10 cm long. There is no gross nephrolithiasis. Very mild prominence of right proximal ureter is seen which may represent peripelvic cyst. 8 x 7 x 7 mm echogenic focus is seen in upper pole of left kidney. Aorta: Visualized aorta is normal in caliber at less than 3 cm. Iliacs: Proximal common iliac arteries are normal in caliber at less than 2.5 cm. IVC: Intrahepatic inferior vena cava is patent. Miscellaneous: No free abdominal fluid. IMPRESSION: 1. Hepatic steatosis with suggestion of a 1.3 x 1.1 x 1.1 cm septated cyst in right hepatic lobe. 2. Gallbladder is surgically absent. No gross biliary ductal dilatation for post cholecystectomy patient. 3. 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 Very mild prominence of right proximal ureter/UPJ which may represent peripelvic cyst. No yulia hydronephrosis or nephrolithiasis is seen. Dictated by: Daniel Aguilar M.D. on 02/24/2020 at 10:49 Approved by: Daniel Aguilar M.D. on 02/24/2020 at 10:52
== END ==
PROVIDERS: Family Provider Psychiatry & Neurology Psychiatry; PCP Family Medicine; Referring Provider Family Medicine; Visit Provider Family Medicine
DX: K76.89 Other specified diseases of liver (principal); R74.8 Abnormal levels of other serum enzymes; Z90.49 Acquired absence of other specified parts of digestive tract
CPT/HCPCS: 76700

== ENCOUNTER → 2020-05-11 11:17 | Outpatient (CLI) | payer OTHER, MEDICAID, SELFPAY ==
--- NOTE | 2020-05-11 | DI.MG.S_ITS ---
BILATERAL DIGITAL SCREENING MAMMOGRAM 3D/2D WITH CAD: 05/11/2020 CLINICAL: Routine screening. Comparison is made to exams dated: 02/02/2019 mammogram, 12/17/2017 mammogram, and 10/18/2016 mammogram - [facility]. There are scattered fibroglandular elements in both breasts. Current study was also evaluated with a Computer Aided Detection (CAD) system. No significant masses, calcifications, or other findings are seen in either breast. There has been no significant interval change. IMPRESSION: NEGATIVE There is no mammographic evidence of malignancy. A 1 year screening mammogram is recommended. This exam was interpreted at Station ID: [id number]. NOTE: For mammograms, a report in lay terms will be sent to the patient. Approximately 15% of breast malignancies will not be visualized mammographically. In the management of a palpable breast mass, a negative mammogram must not discourage biopsy of a clinically suspicious lesion. Electronically Signed By: Aston ortega/evaristo:05/11/2020 12:28:21 letter sent: Normal Exam ACR BI-RADS Category 1: Negative [id number]
== END ==
PROVIDERS: Family Provider Psychiatry & Neurology Psychiatry; PCP Family Medicine; Referring Provider Family Medicine; Visit Provider Family Medicine
DX: Z12.31 Encounter for screening mammogram for malignant neoplasm of breast (principal)
CPT/HCPCS: 77063; 77067

== ENCOUNTER 2020-06-15 17:45 | Emergency (ER) | payer OTHER, MEDICAID, SELFPAY ==
[2020-06-15 17:55] VITALS: BP 117/70; PULSE 94; RESP 14; TEMP 36.1; O2SAT 97; BMI 28.5
--- NOTE | 2020-06-15 18:25 | ED.NAVMDI ---
HPI - Nausea/Vomiting/Diarrhea General Chief complaint: Nausea/Vomiting/Diarrhea Stated complaint: Abdominal pain Time Seen by Provider: 06/15/20 18:08 Source: patient Mode of arrival: EMS Limitations: no limitations History of Present Illness HPI Narrative: Patient is a 65-year-old female here for evaluation of nausea and vomiting and abdominal pain. She states that the symptoms started shortly after she ate some pot brownies this afternoon. She states that she has noticed a increase in the amount of THC that she has been consuming in various ways. She states she has never had the nausea and vomiting before. She also states that she has tried to quit smoking and so she started using nicotine patches and she thinks that the patch that she is wearing is too much for her. By the time I evaluated her she had received some Zofran and reports improvement of her presenting symptoms. Related Data Home Medications Medication Instructions Recorded Confirmed dextroamphetamine-amphetamine 10 mg PO BID #1 01/18/11 05/26/18 [Adderall XR] lamotrigine [Lamictal] 200 mg PO QDAY #0 01/18/11 05/26/18 desonide 1 applic TOPICAL BID 05/26/18 05/26/18 escitalopram oxalate [Lexapro] 20 mg PO DAILY 05/26/18 05/26/18 spironolactone 25 mg PO BID 05/26/18 05/26/18 Previous Rx's Medication Instructions Recorded ondansetron 4 mg PO Q6H PRN #14 tab 06/15/20 Allergies Allergy/AdvReac Type Severity Reaction Status Date / Time codeine Allergy Severe THROAT Verified 06/15/20 18:04 CLOSES Penicillins Allergy Unknown Verified 06/15/20 18:04 Review of Systems Constitutional Constitutional: Denies fatigue and Denies fever(s) ENT Ears, Nose, Mouth, and Throat: Reports dizziness Cardiovascular Cardiovascular: Denies chest pain and Denies dyspnea Respiratory Respiratory: Denies dyspnea Gastrointestinal Gastrointestinal: Reports abdominal pain, Denies change in bowel habits, Reports nausea and Reports vomiting Genitourinary Genitourinary: Denies dysuria Genitourinary: Denies dysuria Musculoskeletal Musculoskeletal: Denies arthralgias and Denies myalgias Integumentary/Breasts Skin/Breast: Denies rash Neurologic Neurologic: Denies confusion and Reports dizziness Psychiatric Psychiatric: Reports anxiety and Denies confusion Endocrine Endocrine: Denies fatigue Hematologic/Lymphatic On Anticoagulants: No Allergic/Immunologic Allergic/Immunologic: Denies urticaria Patient History Medical History ADHD Depression Surgical History (Updated 05/26/18 @ 09:55 by Leni Reeves DO) H/O: hysterectomy History of Hx of cholecystectomy Status post breast reduction Social History marital status: Smoking Status: Former smoker substance use type: marijuana Smoking Status: Former smoker alcohol intake frequency: 0-2 drinks per day Substance Use Type: marijuana Exam Initial Vital Signs Initial Vital Signs: Vital Signs Temperature 97 F L 06/15/20 17:55 Pulse Rate 94 H 06/15/20 17:55 Respiratory Rate 14 06/15/20 17:55 Blood Pressure 117/70 06/15/20 17:55 Pulse Oximetry 97 06/15/20 17:55 Const General: cooperative, comfortable and well developed Limitations: mental status not altered HENMT Head: normal to inspection and normocephalic Resp Effort & Inspection: normal respiratory effort Auscultation: clear to auscultation bilaterally Cardio Rate: regular rate Rhythm: regular rhythm GI Inspection: non-distended Palpation: soft, No firm and No tender Skin Lesions: no lesions Rashes: no rashes Neuro General: patient alert and patient awake Cognition: normal cognition Speech: speech normal Extrem General: normal to inspection and capillary refill normal Psych Appearance: grossly normal and well kempt Course Orders Ordered: Discontinued Medications Sodium Chloride (Normal Saline 0.9%) 1,000 mls @ 1,000 mls/hr IV BOLUS ONE Stop: 06/15/20 19:24 Vital Signs Vital signs: Vital Signs - 8 hr 06/15/20 17:55 Temperature 97 F L Pulse Rate 94 H Respiratory Rate 14 Blood Pressure 117/70 Pulse Oximetry 97 MDM - Nausea/Vomiting/Diarrhea MDM Narrative Medical decision making narrative: Patient appears well. Has a benign exam. Improved after medications. I suspect that her symptoms are related to the THC that she ingested earlier feel we can hold on further workup for now she was given return precautions and follow-up instructions. She expressed understanding agreement. Discharge Plan Departure Patient Disposition: Home Clinical Impression: Nausea and vomiting Instructions: DI for Nausea -- Adult, DI for Vomiting -- Adult Activity Restrictions/Additional Instructions: I do recommend that you decrease the amount of the nicotine patch that you are using. Also recommend that you consider decreasing the amount of THC that you are consuming as well as this is most likely they cause of your symptoms. Contact her primary provider for follow-up. Return to the emergency department for any new or worsening symptoms Prescriptions: New ondansetron 4 mg tablet,disintegrating 4 mg PO Q6H PRN (Reason: nausea and vomiting) Qty: 14 RF: 0 No Action lamotrigine [Lamictal] 100 MG tablet 200 mg PO QDAY Qty: 0 RF: 0 dextroamphetamine-amphetamine [Adderall XR] 10 MG capsule,extended release 24hr 10 mg PO BID Qty: 1 RF: 0 spironolactone 25 mg Tablet 25 mg PO BID RF: 0 desonide 0.05 % lotion 1 applic topical BID RF: 0 escitalopram oxalate [Lexapro] 20 mg Tablet 20 mg PO DAILY RF: 0 Referrals: Carlie Blood MD [Primary Care Provider] -
[2020-06-15 18:58] VITALS: BP 112/67; PULSE 92; RESP 16; TEMP 36.9; O2SAT 98
== END 2020-06-15 18:59 | disposition home or self-care (01) ==
LOC: ED 18:54
PROVIDERS: Emergency Provider Emergency Medicine; Family Provider Psychiatry & Neurology Psychiatry; PCP Family Medicine
DX: R11.2 Nausea with vomiting, unspecified (principal); R10.9 Unspecified abdominal pain
CPT/HCPCS: 99281

== ENCOUNTER → 2020-09-29 10:03 | Outpatient (CLI) | payer OTHER, MEDICAID, SELFPAY ==
--- NOTE | 2020-09-29 | DI.US.S_ITS ---
PROCEDURE: US ABDOMEN COMPLETE INDICATIONS: RENAL CYST/NON-ALCOHOLIC FATTY LIVER TECHNIQUE: Real-time scanning was performed of the abdominal and retroperitoneal organs, with image documentation. COMPARISON: [facility], [place], US ABDOMEN COMPLETE, 02/02/2019, 15:41. [facility], [place], US ABDOMEN COMPLETE, 02/24/2020, 9:41. FINDINGS: Liver: The liver demonstrates normal size and overall normal echogenicity. Within the liver, numerous cysts are seen, including clusters of cysts. The largest cluster of cyst on the left measures up to 1.3 cm and the largest cluster of cysts on the right also measures up to 1.3 cm. Gallbladder: Removed. Biliary ducts: Intrahepatic bile ducts are non-dilated. Extrahepatic bile duct caliber measures 9 mm. Normal is 6-7 mm or less in diameter, or 10 mm or less post-cholecystectomy. Pancreas: Visualized portions of the pancreas are sonographically normal. Spleen: Spleen is normal in size and homogeneous in echotexture. Kidneys: Kidneys are normal in size and echotexture. Right kidney measures 10.8 cm long; left kidney measures 11.2 cm long. No hydronephrosis or nephrolithiasis. No suspicious appearing solid masses. On the left, there is a hyperechoic nodule seen that measures up to 8 mm, which is attributed to a benign fat containing lesion. The renal cortex measures within normal limits for thickness. Aorta: Visualized aorta is normal in caliber at less than 3 cm. Iliacs: Proximal common iliac arteries are normal in caliber at less than 2.5 cm. IVC: Intrahepatic inferior vena cava is patent. Miscellaneous: No free abdominal fluid. The prevoid bladder volume is 130 cc. The postvoid bladder volume is 0 cc. IMPRESSION: The liver demonstrates overall normal echogenicity. Suspicious liver lesions are seen. Liver cysts are seen, including clusters of cysts. Status post cholecystectomy, without biliary dilatation. No postvoid residual. Dictated by: Amado Mueller M.D. on 09/29/2020 at 10:55 Approved by: Amado Mueller M.D. on 09/29/2020 at 10:57
[2020-09-29 13:29] LABS: Alanine Aminotransferase 19 IU/L (<35); Albumin Globulin Ratio 1.5 (1.0-2.8); Alkaline Phosphatase 90 U/L (38-126); Aspartate Aminotransferase 29 IU/L (14-36); BUN Creatinine Ratio 19.7 (6-22); Bilirubin Total 0.3 mg/dL (0.2-1.3); Blood Urea Nitrogen 12 mg/dL (7-17); Calcium 9.4 mg/dL (8.4-10.2); Carbon Dioxide 30 mmol/L (22-32); Chloride 105 mmol/L (98-107); Estimated Glomerular Filt Rate > 60.0 mL/min (>60); Globulin 2.7 g/dL (1.7-4.1); Glucose 74 mg/dL (80-110); HEMOLYSIS < 15 (0-50); Potassium 3.3 mmol/L (3.4-5.1); Sodium 140 mmol/L (137-145); Total Protein 6.7 g/dL (6.3-8.2)
== END ==
PROVIDERS: Family Provider Psychiatry & Neurology Psychiatry; PCP Family Medicine; Referring Provider Family Medicine; Visit Provider Family Medicine
DX: N28.1 Cyst of kidney, acquired (principal); K76.0 Fatty (change of) liver, not elsewhere classified; K76.89 Other specified diseases of liver
CPT/HCPCS: 36415; 76700; 80053

== ENCOUNTER 2020-10-02 14:26 | Emergency (ER) | payer OTHER, MEDICAID, SELFPAY ==
[2020-10-02 14:43] VITALS: BP 136/66; PULSE 96; RESP 22; TEMP 36.7; O2SAT 98
== END 2020-10-02 18:26 | disposition left against medical advice (07) ==
PROVIDERS: Emergency Provider Emergency Medicine; Family Provider Psychiatry & Neurology Psychiatry; PCP Family Medicine
CPT/HCPCS: 99281

== ENCOUNTER → 2020-10-06 11:21 | Outpatient (CLI) | payer OTHER, MEDICAID, SELFPAY ==
[2020-10-06 12:20] LABS: BUN Creatinine Ratio 27.3 (6-22); Blood Urea Nitrogen 21 mg/dL (7-17); Calcium 10.7 mg/dL (8.4-10.2); Carbon Dioxide 28 mmol/L (22-32); Chloride 104 mmol/L (98-107); Estimated Glomerular Filt Rate > 60.0 mL/min (>60); Glucose 98 mg/dL (80-110); HEMOLYSIS < 15 (0-50); Sodium 137 mmol/L (137-145)
== END ==
PROVIDERS: Family Provider Psychiatry & Neurology Psychiatry; PCP Family Medicine; Referring Provider Family Medicine; Visit Provider Family Medicine
DX: K76.0 Fatty (change of) liver, not elsewhere classified (principal); E87.6 Hypokalemia
CPT/HCPCS: 36415; 80048

== ENCOUNTER → 2021-10-02 15:39 | Outpatient (CLI) | payer MEDICARE, OTHER, MEDICAID, SELFPAY ==
--- NOTE | 2021-10-02 15:45 | DI.US.S_ITS ---
PROCEDURE: US PERIPH VENOUS LOW EXTREM RT INDICATIONS: LOWER LEG PAIN AND SWELLING TECHNIQUE: Real-time imaging, as well as color and pulse Doppler interrogation, were performed of the lower extremity deep veins from the inguinal ligament to the popliteal fossa. COMPARISON: None. FINDINGS: The common femoral, femoral and popliteal veins are normally compressible, and free of intraluminal thrombus. Color and pulse Doppler demonstrate normal phasic intraluminal flow. There is normal augmentation response to distal compression maneuver. Lora's cyst measuring 4.0 x 1.8 x 1.83 cm. There is a large solid-appearing 5.1 cm echogenic mass also within the right popliteal fossa. No internal vascularity. IMPRESSION: 1. No deep venous thrombosis. 2. 4.0 cm Lora's cyst. 3. Possible solid mass within the right popliteal fossa measuring up to 5 cm. Differential would include both benign and malignant etiologies. If indicated, contrast-enhanced soft tissue MRI could be performed for further assessment. tissue Dictated by: Cecil George [facility] Interpreted: Gary Bonds MD on 10/02/2021 at 16:40 Transcribed by: ANGELICA on 10/02/2021 at 16:42 Approved by: Gary Bonds M.D. on 10/04/2021 at 7:23
== END ==
PROVIDERS: Family Provider Psychiatry & Neurology Psychiatry; PCP Family Medicine; Referring Provider Family Medicine; Visit Provider Family Medicine
DX: S92.354D Nondisplaced fracture of fifth metatarsal bone, right foot, subsequent encounter for fracture with routine healing (principal); M71.21 Synovial cyst of popliteal space [Baker], right knee; M25.561 Pain in right knee; M25.461 Effusion, right knee
CPT/HCPCS: 93971

== ENCOUNTER 2021-10-21 06:16 | Emergency (ER) | payer MEDICARE, OTHER, MEDICAID, SELFPAY ==
[2021-10-21] VITALS (11 sets, daily range): BP systolic 108–142; BP diastolic 56–76; PULSE 81–99; O2SAT 95–97
--- NOTE | 2021-10-21 07:04 | ED_ITS ---
HPI - Chest Pain General Chief Complaint: Abdominal Pain Stated Complaint: abd. pain/blood in stool Time Seen by Provider: 10/21/21 06:29 Source: patient Mode of arrival: Ambulatory Limitations: no limitations History of Present Illness HPI narrative: 66-year-old female nonsmoker with history of anxiety and a recent hospitalization at [facility] for low blood pressure syncope and head injury presents with her in the chief complaint of severe lower abdominal pain that is crampy in nature and seems to intensify until she has a bloody stool at which point it briefly improves until it intensifies again shortly thereafter. She did recently start doxycycline for a skin condition but has only had 1 dose otherwise she denies recent travel, exposure to bad food or other ill persons. She denies any history of the same and takes no blood thinners. She states it has been quite some time since she had a colonoscopy but denies any abnormal findings. She denies obvious provocation of her disc omfort but, as stated it seems to get better with a bowel movement. She is not dizzy nor weak or lightheaded. Related Data Home Medications Medication Instructions Recorded Confirmed dextroamphetamine-amphetamine ER 10 mg PO BID ##1 01/18/11 05/26/18 10 mg 24hr capsule,extend release (Adderall XR) lamotrigine 100 mg tablet 200 mg PO QDAY ##0 01/18/11 05/26/18 (Lamictal) desonide 0.05 % lotion 1 applic topical BID 05/26/18 05/26/18 escitalopram oxalate 20 mg tablet 20 mg PO DAILY 05/26/18 05/26/18 (Lexapro) spironolactone 25 mg tablet 25 mg PO BID 05/26/18 05/26/18 Previous Rx's Medication Instructions Recorded ondansetron 4 mg disintegrating 4 mg PO Q6H PRN nausea and 06/15/20 tablet vomiting #14 tabs amoxicillin 875 mg-potassium 1 tab PO BID #20 tabs 10/21/21 clavulanate 125 mg tablet tramadol 50 mg tablet (Ultram) 50 mg PO Q6H PRN pain #7 tabs 10/21/21 Allergies Allergy/AdvReac Type Severity Reaction Status Date / Time codeine Allergy Severe THROAT Verified 06/15/20 18:04 CLOSES Penicillins Allergy Unknown Verified 06/15/20 18:04 Review of Systems Review of Systems Narrative: GENERAL: See HPI HEENT: Denies sinus pain, ear pain, sore throat, difficulty swallowing, dizziness. RESPIRATORY: Denies dyspnea, cough, wheezing, hemoptysis, sputum. CARDIOVASCULAR: Denies chest pain, palpitations, orthopnea, edema, GASTROINTESTINAL: See HPI : Denies dysuria, frequency, incontinence, hematuria, urinary retention. MUSCULOSKELETAL: denies weakness, joint pain, or bony pain SKIN: Denies rash, skin lesions, or other NEUROLOGIC: Denies weakness, headache, numbness, change in speech, confusion, seizures, incoordination. PSYCHIATRIC: No concerning psychosocial issues. 12 point review of systems is negative except for those stated above Patient History Medical History ADHD Depression Surgical History H/O: hysterectomy History of Hx of cholecystectomy Status post breast reduction Social History marital status: Smoking Status: Current every day smoker substance use type: marijuana Smoking Status: Current every day smoker tobacco type: cigarettes and vaping alcohol intake frequency: 0-2 drinks per day Substance Use Type: marijuana Exam Narrative Exam Narrative: GENERAL: [66] year old patient appears stated age. Well-developed patient, in mild distress. HEAD: Atraumatic. Normocephalic. EYES: Pupils equal round and reactive. Extraocular motions intact. No scleral icterus. No injection or drainage. ENT: Nose without bleeding, purulent drainage. Throat without erythema, tonsillar hypertrophy or exudate. Airway patent. NECK: Trachea midline. Non tender CARDIOVASCULAR: Regular rate and rhythm without murmurs, gallops, or rubs. RESPIRATORY: Clear to auscultation. Breath sounds equal bilaterally. No wheezes, rales, or rhonchi. GASTROINTESTINAL: Abdomen soft, non-tender, nondistended. Bowel sounds present in all 4 quadrant EXTREMITIES: No edema or joint tenderness. BACK: Nontender without deformity or crepitance. No flank tenderness. NEURO: AOx3. SKIN: No rash or erythema of visible areas Initial Vital Signs Initial Vital Signs: Vital Signs Pulse Rate 96 H 10/21/21 06:26 Pulse Oximetry 97 10/21/21 06:26 Course Orders Ordered: Discontinued Medications Hydromorphone HCl (Hydromorphone 0.5 Mg Inj) 0.5 mg IV NOW ONE Stop: 10/21/21 07:04 Last Admin: 10/21/21 07:08 Dose: 0.5 mg Documented By: NANETTE Hydromorphone HCl (Hydromorphone 1 Mg Inj) 1 mg IV NOW ONE Stop: 10/21/21 08:00 Last Admin: 10/21/21 08:46 Dose: 1 mg Documented By: PETTY Sodium Chloride (Normal Saline 0.9%) 1,000 mls @ 150 mls/hr IV CONT BURT Last Infusion: 10/21/21 10:00 Dose: 0 mls/hr Documented By: Admin: 10/21/21 07:05 Dose: 150 mls/hr Documented By: NANETTE Ondansetron HCl (Ondansetron 4 Mg/2 Ml Inj) 4 mg IV NOW ONE Stop: 10/21/21 07:04 Last Admin: 10/21/21 07:08 Dose: 4 mg Documented By: NANETTE Pantoprazole Sodium (Pantoprazole 40 Mg Vial) 40 mg IV NOW ONE Stop: 10/21/21 06:31 Last Admin: 10/21/21 07:05 Dose: 40 mg Documented By: NANETTE Vital Signs Vital signs: Vital Signs - 8 hr 10/21/21 06:26 10/21/21 06:30 10/21/21 06:32 Pulse Rate 96 H 93 H 97 H Blood Pressure Pulse Oximetry 97 96 96 10/21/21 06:32 Pulse Rate Blood Pressure 118/67 Pulse Oximetry MDM - Chest Pain Lab Data Result diagrams: 10/21/21 06:30 10/21/21 06:30 Labs: Lab Results 10/21/21 10/21/21 10/21/21 Range/Units 06:30 06:30 06:30 WBC 12.4 H (4.5-11.0) X10^3/uL RBC 4.47 (4.0-5.2) X10^6/uL Hgb 13.2 (12.0-16.0) g/dL Hct 39.1 (36-46) % MCV 87.4 (80-100) fL MCH 29.5 (26-34) PG MCHC 33.8 (30-36) % RDW 14.5 (11.6-14.8) % Plt Count 290 (150-400) X10^3/uL Neut % (Auto) 82.6 H (50-75) % Lymph % (Auto) 12.7 L (25-40) % [place] % (Auto) 4.4 (3-14) % Eos % (Auto) 0.0 L (2-4) % Baso % (Auto) 0.3 (0-2) % Neut # (Auto) 10664 H (2648-2475) /uL Lymph # (Auto) 1600 (9816-3434) /uL [place] # (Auto) 500 (0-900) /uL Eos # (Auto) 0 (0-450) /uL Baso # (Auto) 0 (0-100) /uL Sodium 136 L (137-145) mmol/L Potassium 3.9 (3.4-5.1) mmol/L Chloride 102 (98-107) mmol/L Carbon Dioxide 28 (22-32) mmol/L BUN 19 H (7-17) mg/dL Creatinine 0.76 (0.52-1.04) mg/dL Estimated GFR > 60 (>60) mL/min BUN/Creatinine Ratio 25.0 H (6-22) Glucose 114 H (80-110) mg/dL Calcium 9.8 (8.4-10.2) mg/dL Total Bilirubin 0.6 (0.2-1.3) mg/dL AST 27 (14-36) IU/L ALT 18 (<35) IU/L Alkaline Phosphatase 106 (38-126) U/L Total Protein 7.1 (6.3-8.2) g/dL Albumin 4.2 (3.5-5.0) g/dL Globulin 2.9 (1.7-4.1) g/dL Albumin/Globulin Ratio 1.4 (1.0-2.8) Lipase 36 (23-300) U/L Urine Color Urine Appearance Urine pH (4.5-8.0) Ur Specific [place] (1.000-1.035) Urine Protein (Negative) Urine Glucose (UA) (Negative) g/dL Urine Ketones (NEGATIVE) Urine Occult Blood (Negative) Urine Nitrate (Negative) Urine Bilirubin (NEGATIVE) Urine Urobilinogen (0.2) E.U./dL Ur Leukocyte Esterase (NEGATIVE) Urine RBC (0-5/HPF) Urine WBC (0-5/HPF) Urine Bacteria (None) Ur Culture Indicated? Blood Type A Positive Antibody Screen Negative 10/21/21 Range/Units 06:43 WBC (4.5-11.0) X10^3/uL RBC (4.0-5.2) X10^6/uL Hgb (12.0-16.0) g/dL Hct (36-46) % MCV (80-100) fL MCH (26-34) PG MCHC (30-36) % RDW (11.6-14.8) % Plt Count (150-400) X10^3/uL Neut % (Auto) (50-75) % Lymph % (Auto) (25-40) % [place] % (Auto) (3-14) % Eos % (Auto) (2-4) % Baso % (Auto) (0-2) % Neut # (Auto) (9210-8785) /uL Lymph # (Auto) (9881-4223) /uL [place] # (Auto) (0-900) /uL Eos # (Auto) (0-450) /uL Baso # (Auto) (0-100) /uL Sodium (137-145) mmol/L Potassium (3.4-5.1) mmol/L Chloride (98-107) mmol/L Carbon Dioxide (22-32) mmol/L BUN (7-17) mg/dL Creatinine (0.52-1.04) mg/dL Estimated GFR (>60) mL/min BUN/Creatinine Ratio (6-22) Glucose (80-110) mg/dL Calcium (8.4-10.2) mg/dL Total Bilirubin (0.2-1.3) mg/dL AST (14-36) IU/L ALT (<35) IU/L Alkaline Phosphatase (38-126) U/L Total Protein (6.3-8.2) g/dL Albumin (3.5-5.0) g/dL Globulin (1.7-4.1) g/dL Albumin/Globulin Ratio (1.0-2.8) Lipase (23-300) U/L Urine Color Red Urine Appearance Sl cloudy Urine pH 7.5 (4.5-8.0) Ur Specific [place] 1.020 (1.000-1.035) Urine Protein 3+ H (Negative) Urine Glucose (UA) Negative (Negative) g/dL Urine Ketones Negative (NEGATIVE) Urine Occult Blood 3+ H (Negative) Urine Nitrate Negative (Negative) Urine Bilirubin Negative (NEGATIVE) Urine Urobilinogen 0.2 (0.2) E.U./dL Ur Leukocyte Esterase 2+ H (NEGATIVE) Urine RBC >100/hpf H (0-5/HPF) Urine WBC 30-100/hpf H (0-5/HPF) Urine Bacteria None seen (None) Ur Culture Indicated? Specimen cultured Blood Type Antibody Screen Imaging Data CT scan - abdomen/pelvis: Radiologist's Impression: [address] [address] [address] Scan Report Signed Patient: Jody Nelson MR#: [id number] : 1955 Acct:[id number] Age/Sex: 66 / F Date of Service: 10/21/21 Loc: ED Accession Number: [id number] ?? Procedure: CT abdomen pelvis w con Ordering Provider: Leni Reeves D.O. PROCEDURE:? CT ABDOMEN PELVIS W CON ? INDICATIONS:? abd pain, bloody stool ? TECHNIQUE:? After the administration of oral and IV contrast, axial sections were acquired from the lung bases to the pubic symphysis.? Coronal and sagittal reformats were performed.? For radiation dose reduction, the following was used:? automated exposure control, adjustment of mA and/or kV according to patient size. ? COMPARISON:? None. ? FINDINGS:? Image quality:? Excellent.? ? Lung bases:? Unremarkable.? ? A small hiatal hernia is incidentally noted.? The distal esophagus is moderately thickened, as seen on series 2, image 6. Heart:? No significant findings. ? ? ABDOMEN: Liver:? Several well-defined low-density liver lesions are seen, which are attributed to cysts. The liver is normal in size and demonstrates no suspicious lesions. Gallbladder:? Removed.? ? Biliary ducts:? Unremarkable.? ? Pancreas:? Unremarkable.? ? Spleen:? Unremarkable.? ? Adrenal Glands:? Unremarkable.? ? Kidneys and Ureters:? Unremarkable.? ? ? Stomach and Bowel:? There is a relatively broad area abnormal colonic wall thickening seen extending from the splenic flexure through the rectosigmoid.? The area the most prominent inflammation is seen within the proximal sigmoid.? [id number] surrounding inflammatory changes are seen.? No dilated loops of small bowel are seen. The stomach is relatively decompressed. The more proximal colon is unremarkable.? Colonic diverticular formation can be seen distally. Peritoneum:? No peritoneal abscess is seen.? No abnormal intraperitoneal fluid.? No free air.? ? Ventral Wall: ? No hernia.? Within the anterior abdominal wall within the level of the epigastrium, there is a fat containing lesion with mild rim enhancement, evelyn suring 11 mm. ? Abdominal Nodes:? No retroperitoneal or mesenteric adenopathy by size criteria.? Vessels:? Aorta and inferior vena cava are normal in size.? ? PELVIS: Pelvic Organs:? Apparent prior supracervical hysterectomy.? No adnexal masses are seen on either side.? Bladder:? Unremarkable.? ? Pelvic Nodes: No enlarged lymph nodes.? Miscellaneous: No inguinal hernias are seen. ? ? Within the buttocks, injection granulomas are seen. ? Bones:? Focal lower lumbar spine degenerative changes are seen.? Milder degenerative changes are seen elsewhere.? Degenerative change minimal S shaped scoliotic curvature is seen. ? ? IMPRESSION:? ? There is a relatively broad area of distal colonic wall thickening with surrounding inflammatory change.? No findings of perforation or abscess can be seen. Please correlate with potential infectious and inflammatory causes of colitis.? (The degree of involvement is broader than is commonly seen in diverticulitis.) ? A small hiatal hernia is seen, with apparent wall thickening of the distal esophagus.? When clinically appropriate, please consider upper endoscopy for further evaluation. ? ? ? Incidental note is made of: Apparent liver cysts Cholecystectomy Anterior abdominal wall lipoma versus fat necrosis. Focal lower lumbar spine Apparent prior supracervical hysterectomy Injection granulomas within the buttocks ? Dictated by: Amado Mueller M.D. on 10/21/2021 at 7:30 ? ? Approved by: Amado Mueller M.D. on 10/21/2021 at 7:38 ? Discharge Plan Departure Patient Disposition: Home Clinical Impression: Colitis, UTI (urinary tract infection) Instructions: DI for Colitis Activity Restrictions/Additional Instructions: Follow-up with your physician for recheck. I would recommend repeat colonoscopy in the next several months after the pain and bleeding has stopped since it has been 10 years since your last colonoscopy. Urine also shows possible infection I would cover with an antibiotic today. I would recommend that you stop your naltrexone if taking the tramadol for the short term. You can be started if not taking any narcotics. You may take antibiotic 1 tablet every 12 hours until gone. You may take Tylenol up to a 1000 mg every 6 hours and/or ibuprofen up to 800 mg every 8 hours. If in adequate you may take narcotic pain medication. You may take tramadol 1-2 tablets every 6 hours as needed for pain. This medication can make you sleepy do not drive, perform hazardous activities or make any major decisions while taking it. This medication will make you constipated please take a stool softener once to twice daily until stools are soft and regular. [facility] [place]. Please return for fevers, rapidly worsening pain, persistent vomiting, passing out, if you are having increasing rectal bleeding or numbers of clots, you will likely have some continued bleeding over the next day or so but this should improve with time. Prescriptions: New amoxicillin-pot clavulanate 875-125 mg tablet 1 tab PO BID Qty: 20 0RF tramadol [Ultram] 50 mg tablet 50 mg PO Q6H PRN (Reason: pain) Qty: 7 0RF No Action lamotrigine [Lamictal] 100 MG tablet 200 mg PO QDAY Qty: 0 dextroamphetamine-amphetamine [Adderall XR] 10 MG capsule,extended release 24hr 10 mg PO BID Qty: 1 spironolactone 25 mg Tablet 25 mg PO BID Label Comments: started early April 2018 desonide 0.05 % lotion 1 applic topical BID escitalopram oxalate [Lexapro] 20 mg Tablet 20 mg PO DAILY ondansetron 4 mg tablet,disintegrating 4 mg PO Q6H PRN (Reason: nausea and vomiting) Qty: 14 0RF Referrals: Alka Dallas MD [Primary Care Provider] - Visit Report Forms: Patient Portal/API
[2021-10-21] MEDS: SODIUM CHLORIDE 0.9% 1,000 ML 150 ML IV (07:05)
[2021-10-21] MEDS: PANTOPRAZOLE 40 MG VIAL IV (07:05)
[2021-10-21] MEDS: HYDROMORPHONE 0.5 MG INJ IV (07:08)
[2021-10-21] MEDS: ONDANSETRON 4 MG/2 ML INJ IV (07:08)
[2021-10-21 07:15] LABS: Add Manual Diff / Slide Review NO; Basophils Absolute Auto 0 /uL (0-100); Basophils Percent Auto 0.3 % (0-2); Eosinophils Absolute Auto 0 /uL (0-450); Hematocrit 39.1 % (36-46); Hemoglobin 13.2 g/dL (12.0-16.0); Lymphocytes Absolute Auto 1600 /uL (1100-4500); Lymphocytes Percent Auto 12.7 % (25-40); Mean Corpuscular HGB Conc 33.8 % (30-36); Mean Corpuscular Hemoglobin 29.5 PG (26-34); Mean Corpuscular Volume 87.4 fL (80-100); Monocytes Absolute Auto 500 /uL (0-900); Monocytes Percent Auto 4.4 % (3-14); Neutrophils Absolute Auto 10200 /uL (1500-7000); Neutrophils Percent Auto 82.6 % (50-75); Platelet Count 290 X10^3/uL (150-400); Red Blood Cell Count 4.47 X10^6/uL (4.0-5.2); Red Cell Distribution Width 14.5 % (11.6-14.8); White Blood Cell Count 12.4 X10^3/uL (4.5-11.0)
[2021-10-21 07:28] LABS: Alanine Aminotransferase 18 IU/L (<35); Albumin 4.2 g/dL (3.5-5.0); Albumin Globulin Ratio 1.4 (1.0-2.8); Alkaline Phosphatase 106 U/L (38-126); Aspartate Aminotransferase 27 IU/L (14-36); Bilirubin Total 0.6 mg/dL (0.2-1.3); Blood Urea Nitrogen 19 mg/dL (7-17); Calcium 9.8 mg/dL (8.4-10.2); Carbon Dioxide 28 mmol/L (22-32); Chloride 102 mmol/L (98-107); Estimated Glomerular Filt Rate > 60 mL/min (>60); Globulin 2.9 g/dL (1.7-4.1); Glucose 114 mg/dL (80-110); HEMOLYSIS < 15 (0-50); Lipase 36 U/L (23-300); Potassium 3.9 mmol/L (3.4-5.1); Sodium 136 mmol/L (137-145); Total Protein 7.1 g/dL (6.3-8.2)
--- NOTE | 2021-10-21 07:53 | ED_ITS ---
HPI - Abdominal Pain General Chief Complaint: Abdominal Pain Stated Complaint: abd. pain/blood in stool Time Seen by Provider: 10/21/21 06:29 Source: patient Mode of arrival: Ambulatory Limitations: no limitations History of Present Illness HPI narrative: This is a 66-year-old female with history of mood disorder, and on spironolactone and doxycycline for skin. Patient states she started having abdominal discomfort last night had a large amount of diarrhea and stool followed by abdominal pain particularly in the lower pelvic region and some back cramping and bloody stool with clots. Patient states no fevers that she is aware of. She is been nauseated but not vomiting. She denies chest pain or shortness of breath. Patient denies dysuria, urgency or frequency. She denies any vaginal bleeding or discharge. She states she is had a colonoscopy but it has been probably 10 years. She has had a partial hysterectomy her cervix is still present., cholecystectomy. Patient did have a fall somewhat recently broke her foot and has some bruising on her upper abdomen. Patient states she is allergic to penicillin and codeine. Patient states codeine makes her throat feel like it is going to close. She has quit tobacco, occasional alcohol, uses THC edibles but no other illicit. She has not had similar symptoms in the past. She is accompanied today by her significant other. Related Data Home Medications Medication Instructions Recorded Confirmed dextroamphetamine-amphetamine ER 10 mg PO BID ##1 01/18/11 05/26/18 10 mg 24hr capsule,extend release (Adderall XR) lamotrigine 100 mg tablet 200 mg PO QDAY ##0 01/18/11 05/26/18 (Lamictal) desonide 0.05 % lotion 1 applic topical BID 05/26/18 05/26/18 escitalopram oxalate 20 mg tablet 20 mg PO DAILY 05/26/18 05/26/18 (Lexapro) spironolactone 25 mg tablet 25 mg PO BID 05/26/18 05/26/18 Previous Rx's Medication Instructions Recorded ondansetron 4 mg disintegrating 4 mg PO Q6H PRN nausea and 06/15/20 tablet vomiting #14 tabs amoxicillin 875 mg-potassium 1 tab PO BID #20 tabs 10/21/21 clavulanate 125 mg tablet tramadol 50 mg tablet (Ultram) 50 mg PO Q6H PRN pain #7 tabs 10/21/21 Allergies Allergy/AdvReac Type Severity Reaction Status Date / Time codeine Allergy Severe THROAT Verified 06/15/20 18:04 CLOSES Penicillins Allergy Unknown Verified 06/15/20 18:04 Review of Systems Review of Systems ROS Unobtainable: All systems reviewed & are unremarkable except as noted in HPI and below Patient History Medical History ADHD Depression Surgical History H/O: hysterectomy History of Hx of cholecystectomy Status post breast reduction Social History marital status: Smoking Status: Current every day smoker substance use type: marijuana Smoking Status: Current every day smoker tobacco type: cigarettes and vaping alcohol intake frequency: 0-2 drinks per day Substance Use Type: marijuana Exam Narrative Exam Narrative: GENERAL: Alert and oriented x three, [id number]. HEENT: Head normocephalic, atraumatic, EOMI, pupils reactive, face symmetric, moist mucous membranes NECK: Supple, full range of motion CARDIOVASCULAR: Regular rate and rhythm without murmurs, rubs or gallops. RESPIRATORY: Breath sounds equal bilaterally, no wheezes rales or rhonchi. ABDOMEN: Soft, generalized tenderness. Patient does have some anterior ecchymosis without hematoma under the xiphoid and the soft tissue. No bony tenderness. Hyperactive bowel sounds all 4 quadrants. No guarding or rebound, rigidity, no mass. : No CVA tenderness EXTREMITIES: Normal range of motion, no clubbing or edema. Neurovascularly intact NEUROLOGICAL: Cranial nerves II through XII grossly intact. Moving all extremities SKIN: Warm, dry, no petechiae, no rashes or lesions. Initial Vital Signs Initial Vital Signs: Vital Signs Pulse Rate 96 H 10/21/21 06:26 Pulse Oximetry 97 10/21/21 06:26 Course Orders Ordered: Discontinued Medications Hydromorphone HCl (Hydromorphone 0.5 Mg Inj) 0.5 mg IV NOW ONE Stop: 10/21/21 07:04 Last Admin: 10/21/21 07:08 Dose: 0.5 mg Documented By: NANETTE Hydromorphone HCl (Hydromorphone 1 Mg Inj) 1 mg IV NOW ONE Stop: 10/21/21 08:00 Last Admin: 10/21/21 08:46 Dose: 1 mg Documented By: PETTY Sodium Chloride (Normal Saline 0.9%) 1,000 mls @ 150 mls/hr IV CONT BURT Last Infusion: 10/21/21 10:00 Dose: 0 mls/hr Documented By: Admin: 10/21/21 07:05 Dose: 150 mls/hr Documented By: NANETTE Ondansetron HCl (Ondansetron 4 Mg/2 Ml Inj) 4 mg IV NOW ONE Stop: 10/21/21 07:04 Last Admin: 10/21/21 07:08 Dose: 4 mg Documented By: NANETTE Pantoprazole Sodium (Pantoprazole 40 Mg Vial) 40 mg IV NOW ONE Stop: 10/21/21 06:31 Last Admin: 10/21/21 07:05 Dose: 40 mg Documented By: NANETTE Reevaluation(s) Reevaluation #1: Patient is feeling much better at this time reviewed her findings plan for short course of pain medication, antibiotics more for UTI colitis. Patient is on naltrexone for fibromyalgia pain we discussed maybe holding this as she could precipitate some withdrawal she has not had a dose about 2 days. Return precautions were discussed. Patient feels comfortable returning home and feels much better. She has not had a colonoscopy for at least 10 years so recommended to have a repeat. Time: 09:46 Vital Signs Vital signs: Vital Signs - 8 hr 10/21/21 06:26 10/21/21 06:30 10/21/21 06:32 Pulse Rate 96 H 93 H 97 H Blood Pressure Pulse Oximetry 97 96 96 10/21/21 06:32 10/21/21 07:00 10/21/21 07:30 Pulse Rate 93 H 99 H Blood Pressure 118/67 Pulse Oximetry 97 96 10/21/21 07:52 10/21/21 07:52 10/21/21 07:59 Pulse Rate 82 81 Blood Pressure 108/56 L Pulse Oximetry 95 96 10/21/21 08:00 10/21/21 08:02 10/21/21 08:30 Pulse Rate 92 H 81 Blood Pressure 112/62 Pulse Oximetry 97 96 10/21/21 08:50 10/21/21 08:50 Pulse Rate 89 Blood Pressure 142/76 H Pulse Oximetry 97 MDM - Abdominal Pain Lab Data Result diagrams: 10/21/21 06:30 10/21/21 06:30 Labs: Lab Results 10/21/21 10/21/21 10/21/21 Range/Units 06:30 06:30 06:30 WBC 12.4 H (4.5-11.0) X10^3/uL RBC 4.47 (4.0-5.2) X10^6/uL Hgb 13.2 (12.0-16.0) g/dL Hct 39.1 (36-46) % MCV 87.4 (80-100) fL MCH 29.5 (26-34) PG MCHC 33.8 (30-36) % RDW 14.5 (11.6-14.8) % Plt Count 290 (150-400) X10^3/uL Neut % (Auto) 82.6 H (50-75) % Lymph % (Auto) 12.7 L (25-40) % [place] % (Auto) 4.4 (3-14) % Eos % (Auto) 0.0 L (2-4) % Baso % (Auto) 0.3 (0-2) % Neut # (Auto) 71885 H (5429-9664) /uL Lymph # (Auto) 1600 (1402-2420) /uL [place] # (Auto) 500 (0-900) /uL Eos # (Auto) 0 (0-450) /uL Baso # (Auto) 0 (0-100) /uL Sodium 136 L (137-145) mmol/L Potassium 3.9 (3.4-5.1) mmol/L Chloride 102 (98-107) mmol/L Carbon Dioxide 28 (22-32) mmol/L BUN 19 H (7-17) mg/dL Creatinine 0.76 (0.52-1.04) mg/dL Estimated GFR > 60 (>60) mL/min BUN/Creatinine Ratio 25.0 H (6-22) Glucose 114 H (80-110) mg/dL Calcium 9.8 (8.4-10.2) mg/dL Total Bilirubin 0.6 (0.2-1.3) mg/dL AST 27 (14-36) IU/L ALT 18 (<35) IU/L Alkaline Phosphatase 106 (38-126) U/L Total Protein 7.1 (6.3-8.2) g/dL Albumin 4.2 (3.5-5.0) g/dL Globulin 2.9 (1.7-4.1) g/dL Albumin/Globulin Ratio 1.4 (1.0-2.8) Lipase 36 (23-300) U/L Urine Color Urine Appearance Urine pH (4.5-8.0) Ur Specific [place] (1.000-1.035) Urine Protein (Negative) Urine Glucose (UA) (Negative) g/dL Urine Ketones (NEGATIVE) Urine Occult Blood (Negative) Urine Nitrate (Negative) Urine Bilirubin (NEGATIVE) Urine Urobilinogen (0.2) E.U./dL Ur Leukocyte Esterase (NEGATIVE) Urine RBC (0-5/HPF) Urine WBC (0-5/HPF) Urine Bacteria (None) Ur Culture Indicated? Blood Type A Positive Antibody Screen Negative 10/21/21 Range/Units 06:43 WBC (4.5-11.0) X10^3/uL RBC (4.0-5.2) X10^6/uL Hgb (12.0-16.0) g/dL Hct (36-46) % MCV (80-100) fL MCH (26-34) PG MCHC (30-36) % RDW (11.6-14.8) % Plt Count (150-400) X10^3/uL Neut % (Auto) (50-75) % Lymph % (Auto) (25-40) % [place] % (Auto) (3-14) % Eos % (Auto) (2-4) % Baso % (Auto) (0-2) % Neut # (Auto) (6666-7209) /uL Lymph # (Auto) (8971-3803) /uL [place] # (Auto) (0-900) /uL Eos # (Auto) (0-450) /uL Baso # (Auto) (0-100) /uL Sodium (137-145) mmol/L Potassium (3.4-5.1) mmol/L Chloride (98-107) mmol/L Carbon Dioxide (22-32) mmol/L BUN (7-17) mg/dL Creatinine (0.52-1.04) mg/dL Estimated GFR (>60) mL/min BUN/Creatinine Ratio (6-22) Glucose (80-110) mg/dL Calcium (8.4-10.2) mg/dL Total Bilirubin (0.2-1.3) mg/dL AST (14-36) IU/L ALT (<35) IU/L Alkaline Phosphatase (38-126) U/L Total Protein (6.3-8.2) g/dL Albumin (3.5-5.0) g/dL Globulin (1.7-4.1) g/dL Albumin/Globulin Ratio (1.0-2.8) Lipase (23-300) U/L Urine Color Red Urine Appearance Sl cloudy Urine pH 7.5 (4.5-8.0) Ur Specific [place] 1.020 (1.000-1.035) Urine Protein 3+ H (Negative) Urine Glucose (UA) Negative (Negative) g/dL Urine Ketones Negative (NEGATIVE) Urine Occult Blood 3+ H (Negative) Urine Nitrate Negative (Negative) Urine Bilirubin Negative (NEGATIVE) Urine Urobilinogen 0.2 (0.2) E.U./dL Ur Leukocyte Esterase 2+ H (NEGATIVE) Urine RBC >100/hpf H (0-5/HPF) Urine WBC 30-100/hpf H (0-5/HPF) Urine Bacteria None seen (None) Ur Culture Indicated? Specimen cultured Blood Type Antibody Screen Imaging Data CT scan - abdomen/pelvis: Radiologist's Impression: [place] [address] CT Scan Report Signed Patient: Jody Nelson MR#: [id number] : 1955 Acct:[id number] Age/Sex: 66 / F Date of Service: 10/21/21 Loc: ED Accession Number: [id number] ?? Procedure: CT abdomen pelvis w con Ordering Provider: Leni Reeves D.O. PROCEDURE:? CT ABDOMEN PELVIS W CON ? INDICATIONS:? abd pain, bloody stool ? TECHNIQUE:? After the administration of oral and IV contrast, axial sections were acquired from the lung bases to the pubic symphysis.? Coronal and sagittal reformats were performed.? For radiation dose reduction, the following was used:? automated exposure control, adjustment of mA and/or kV according to patient size. ? COMPARISON:? None. ? FINDINGS:? Image quality:? Excellent.? ? Lung bases:? Unremarkable.? ? A small hiatal hernia is incidentally noted.? The distal esophagus is moderately thickened, as seen on series 2, image 6. Heart:? No significant findings. ? ? ABDOMEN: Liver:? Several well-defined low-density liver lesions are seen, which are attributed to cysts. The liver is normal in size and demonstrates no suspicious lesions. Gallbladder:? Removed.? ? Biliary ducts:? Unremarkable.? ? Pancreas:? Unremarkable.? ? Spleen:? Unremarkable.? ? Adrenal Glands:? Unremarkable.? ? Kidneys and Ureters:? Unremarkable.? ? ? Stomach and Bowel:? There is a relatively broad area abnormal colonic wall thickening seen extending from the splenic flexure through the rectosigmoid.? The area the most prominent inflammation is seen within the proximal sigmoid.? [id number] surrounding inflammatory changes are seen.? No dilated loops of small bowel are seen. The stomach is relatively decompressed. The more proximal colon is unremarkable.? Colonic diverticular formation can be seen distally. Peritoneum:? No peritoneal abscess is seen.? No abnormal intraperitoneal fluid.? No free air.? ? Ventral Wall: ? No hernia.? Within the anterior abdominal wall within the level of the epigastrium, there is a fat containing lesion with mild rim enhancement, measuring 11 mm. ? Abdominal Nodes:? No retroperitoneal or mesenteric adenopathy by size criteria.? Vessels:? Aorta and inferior vena cava are normal in size.? ? PELVIS: Pelvic Organs:? Apparent prior supracervical hysterectomy.? No adnexal masses are seen on either side.? Bladder:? Unremarkable.? ? Pelvic Nodes: No enlarged lymph nodes.? Miscellaneous: No inguinal hernias are seen. ? ? Within the buttocks, injection granulomas are seen. ? Bones:? Focal lower lumbar spine degenerative changes are seen.? Milder degenerative changes are seen elsewhere.? Degenerative change minimal S shaped scoliotic curv ature is seen. ? ? IMPRESSION:? ? There is a relatively broad area of distal colonic wall thickening with surrounding inflammatory change.? No findings of perforation or abscess can be seen. Please correlate with potential infectious and inflammatory causes of colitis.? (The degree of involvement is broader than is commonly seen in diverticulitis.) ? A small hiatal hernia is seen, with apparent wall thickening of the distal esophagus.? When clinically appropriate, please consider upper endoscopy for further evaluation. ? ? ? Incidental note is made of: Apparent liver cysts Cholecystectomy Anterior abdominal wall lipoma versus fat necrosis. Focal lower lumbar spine Apparent prior supracervical hysterectomy Injection granulomas within the buttocks ? Dictated by: Amado Mueller M.D. on 10/21/2021 at 7:30 ? ? Approved by: Amado Mueller M.D. on 10/21/2021 at 7:38 ? MDM Narrative Medical decision making narrative: This is a 66-year-old female who presents with fairly sudden onset abdominal pain with bloody stool. Patient describes some lower back cramping and discomfort as well. Patient states she is not on any anticoagulants, she is not had similar symptoms in the past. She is had nausea but no vomiting. She had quite a bit of diarrhea initially then followed from blood with clots. Patient has been slightly tachycardic, normal O2 sat. She has received saline, Protonix, Zofran and initial dose of pain medication which was moderately helpful. Labs show a slight leukocytosis, otherwise normal hemoglobin, renal function electrolytes and abdominal labs. Plan for CT abdomen pelvis which shows broad colonic wall thickening with surrounding inflammatory changes with no perforation or abscess. There is a small hiatal with some thickening of the distal esophagus, patient also has some incidental findings anterior abdominal wall lipoma versus fat necrosis maybe from her fall. No other emergent findings found today. Discharge Plan Departure Patient Disposition: Home Clinical Impression: Colitis, UTI (urinary tract infection) Instructions: DI for Colitis Activity Restrictions/Additional Instructions: Follow-up with your physician for recheck. I would recommend repeat colonoscopy in the next several months after the pain and bleeding has stopped since it has been 10 years since your last colonoscopy. Urine also shows possible infection I would cover with an antibiotic today. I would recommend that you stop your naltrexone if taking the tramadol for the short term. You can be started if not taking any narcotics. You may take antibiotic 1 tablet every 12 hours until gone. You may take Tylenol up to a 1000 mg every 6 hours and/or ibuprofen up to 800 mg every 8 hours. If in adequate you may take narcotic pain medication. You may take tramadol 1-2 tablets every 6 hours as needed for pain. This medication can make you sleepy do not drive, perform hazardous activities or make any major decisions while taking it. This medication will make you constipated please take a stool softener once to twice daily until stools are soft and regular. [facility] [place] Please return for fevers, rapidly worsening pain, persistent vomiting, passing out, if you are having increasing rectal bleeding or numbers of clots, you will likely have some continued bleeding over the next day or so but this should improve with time. Prescriptions: New amoxicillin-pot clavulanate 875-125 mg tablet 1 tab PO BID Qty: 20 0RF tramadol [Ultram] 50 mg tablet 50 mg PO Q6H PRN (Reason: pain) Qty: 7 0RF No Action lamotrigine [Lamictal] 100 MG tablet 200 mg PO QDAY Qty: 0 dextroamphetamine-amphetamine [Adderall XR] 10 MG capsule,extended release 24hr 10 mg PO BID Qty: 1 spironolactone 25 mg Tablet 25 mg PO BID Label Comments: started early April 2018 desonide 0.05 % lotion 1 applic topical BID escitalopram oxalate [Lexapro] 20 mg Tablet 20 mg PO DAILY ondansetron 4 mg tablet,disintegrating 4 mg PO Q6H PRN (Reason: nausea and vomiting) Qty: 14 0RF Referrals: Alka Dallas MD [Primary Care Provider] - Visit Report Forms: Patient Portal/API
--- NOTE | 2021-10-21 07:53 | DI.CT.S_ITS ---
PROCEDURE: CT ABDOMEN PELVIS W CON INDICATIONS: abd pain, bloody stool TECHNIQUE: After the administration of oral and IV contrast, axial sections were acquired from the lung bases to the pubic symphysis. Coronal and sagittal reformats were performed. For radiation dose reduction, the following was used: automated exposure control, adjustment of mA and/or kV according to patient size. COMPARISON: None. FINDINGS: Image quality: Excellent. Lung bases: Unremarkable. A small hiatal hernia is incidentally noted. The distal esophagus is moderately thickened, as seen on series 2, image 6. Heart: No significant findings. ABDOMEN: Liver: Several well-defined low-density liver lesions are seen, which are attributed to cysts. The liver is normal in size and demonstrates no suspicious lesions. Gallbladder: Removed. Biliary ducts: Unremarkable. Pancreas: Unremarkable. Spleen: Unremarkable. Adrenal Glands: Unremarkable. Kidneys and Ureters: Unremarkable. Stomach and Bowel: There is a relatively broad area abnormal colonic wall thickening seen extending from the splenic flexure through the rectosigmoid. The area the most prominent inflammation is seen within the proximal sigmoid. Uvso-rb-[id number] surrounding inflammatory changes are seen. No dilated loops of small bowel are seen. The stomach is relatively decompressed. The more proximal colon is unremarkable. Colonic diverticular formation can be seen distally. Peritoneum: No peritoneal abscess is seen. No abnormal intraperitoneal fluid. No free air. Ventral Wall: No hernia. Within the anterior abdominal wall within the level of the epigastrium, there is a fat containing lesion with mild rim enhancement, measuring 11 mm. Abdominal Nodes: No retroperitoneal or mesenteric adenopathy by size criteria. Vessels: Aorta and inferior vena cava are normal in size. PELVIS: Pelvic Organs: Apparent prior supracervical hysterectomy. No adnexal masses are seen on either side. Bladder: Unremarkable. Pelvic Nodes: No enlarged lymph nodes. Miscellaneous: No inguinal hernias are seen. Within the buttocks, injection granulomas are seen. Bones: Focal lower lumbar spine degenerative changes are seen. Milder degenerative changes are seen elsewhere. Degenerative change minimal S shaped scoliotic curvature is seen. IMPRESSION: There is a relatively broad area of distal colonic wall thickening with surrounding inflammatory change. No findings of perforation or abscess can be seen. Please correlate with potential infectious and inflammatory causes of colitis. (The degree of involvement is broader than is commonly seen in diverticulitis.) A small hiatal hernia is seen, with apparent wall thickening of the distal esophagus. When clinically appropriate, please consider upper endoscopy for further evaluation. Incidental note is made of: Apparent liver cysts Cholecystectomy Anterior abdominal wall lipoma versus fat necrosis. Focal lower lumbar spine Apparent prior supracervical hysterectomy Injection granulomas within the buttocks Dictated by: Amado Mueller M.D. on 10/21/2021 at 7:30 Approved by: Amado Mueller M.D. on 10/21/2021 at 7:38
[2021-10-21] MEDS: HYDROMORPHONE 1 MG INJ IV (08:46)
[2021-10-21 08:59] LABS: Appearance Urine UA SL CLOUDY; Bilirubin Urine UA NEGATIVE (NEGATIVE); Color Urine UA RED; Glucose Urine UA NEGATIVE (Negative); Ketones Urine UA NEGATIVE (NEGATIVE); Leukocyte Esterase Urine UA 2+ (NEGATIVE); Nitrite Urine UA NEGATIVE (Negative); Occult Blood Urine UA 3+ (Negative); Protein Urine UA 3+ (Negative); Urobilinogen Urine UA 0.2 E.U./dL (0.2)
[2021-10-21 09:00] LABS: Bacteria Urine None Seen; Culture Indicated Urine Specimen Cultured; RBC Urine >100/HPF (0-5/HPF); WBC Urine 30-100/HPF (0-5/HPF); pH Urine UA 7.5 (4.5-8.0)
== END 2021-10-21 10:03 | disposition home or self-care (01) ==
PROVIDERS: Emergency Medicine; Emergency Provider Emergency Medicine; Family Provider Psychiatry & Neurology Psychiatry; PCP Family Medicine
DX: K52.9 Noninfective gastroenteritis and colitis, unspecified (principal); N39.0 Urinary tract infection, site not specified
CPT/HCPCS: 36415; 74177; 80053; 81001; 83690; 85025; 86850; 86900; 86901; 87077; 87086; 87186; 96361; 96374; 96375; 96376; 99284; C9113; J1170; J2405; Q9967

== ENCOUNTER → 2021-12-08 09:00 | Outpatient (CLI) | payer MEDICARE, OTHER, MEDICAID, SELFPAY | PROVIDERS: Family Provider Psychiatry & Neurology Psychiatry; PCP Family Medicine; Referring Provider Family Medicine; Visit Provider Family Medicine | DX: I48.91 Unspecified atrial fibrillation (principal) | CPT/HCPCS: 93005; 93010 ==

== ENCOUNTER → 2021-12-13 08:25 | Outpatient (CLI) | payer MEDICARE, OTHER, MEDICAID, SELFPAY ==
--- NOTE | 2021-12-13 | DI.MRI.S_ITS ---
PROCEDURE: MR ANGIOLE RT W CON INDICATIONS: SYNOVIAL CYST OF RIGHT POPLITEAL SPACE TECHNIQUE: Precontrast axial and coronal TruFISP acquired through the abdomen and pelvis. Multi-station dynamic coronal MRA using Care Bolus timing from the kidneys to the ankles during the administration of contrast, with 3-dimensional maximum intensity projection (MIP) reformats constructed. COMPARISON: None. FINDINGS: Image quality: Excellent. ABDOMEN: Aorta: Aorta is normal in caliber and is patent. Renal arteries: Renal arteries are suboptimally visualized. Extravascular soft tissues: Visualized solid organs are normal in size on limited pre-contrast images. Bowel loops are normal in caliber. No free fluid. No retroperitoneal or mesenteric adenopathy by size criteria. No ventral hernias. Bones: Marrow demonstrates normal overall signal. PELVIS AND BILATERAL LOWER EXTREMITIES: Right sided vessels: Common iliac, external iliac, common femoral, SFA, and popliteal are widely patent. The 3 distal runoff vessels are widely patent proximally. The posterior tibial is difficult to evaluate beyond the proximal calf. It may potentially be occluded. The anterior tibial and peroneal appear patent. Left sided vessels: Common iliac, external iliac, common femoral, SFA, and popliteal are widely patent. Anterior tibial and peroneal are likely patent. Posterior tibial is occluded. IMPRESSION: 1. Wide arterial patency from the aorta through the popliteal arteries bilaterally. 2. Question right posterior tibial artery occlusion. 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 3. There appears to be 2 vessel anterior tibial and peroneal runoff bilaterally. Dictated by: Mario Campbell M.D. on 12/13/2021 at 15:26 Approved by: Mario Campbell M.D. on 12/13/2021 at 15:34
== END ==
PROVIDERS: Family Provider Psychiatry & Neurology Psychiatry; PCP Family Medicine; Referring Provider Family Medicine; Visit Provider Family Medicine
DX: M71.21 Synovial cyst of popliteal space [Baker], right knee (principal); Z01.818 Encounter for other preprocedural examination
CPT/HCPCS: 93010; C8912; A9579

== ENCOUNTER 2022-04-12 13:00 | Emergency (ER) | payer MEDICARE, MEDICAID, SELFPAY ==
[2022-04-12 13:19] VITALS: BP 148/84; PULSE 87; RESP 16; TEMP 36.3; O2SAT 96; BMI 30.2
== END 2022-04-12 14:41 | disposition left against medical advice (07) ==
PROVIDERS: Emergency Provider Emergency Medicine; Family Provider Psychiatry & Neurology Psychiatry; PCP Family Medicine
CPT/HCPCS: 99281

== ENCOUNTER 2022-04-19 09:00 | Day surgery (SDC) | payer MEDICARE, MEDICAID, SELFPAY ==
[2022-04-16 15:00] VITALS: BMI 30.2
--- NOTE | 2022-04-19 | PATH_ITS ---
[facility] Accession Number: [id number] No. of containers..01 Tissue . 01 Material submitted: . limb - LEFT THIRD INTERSPACE . 01 Diagnosis: Left Third Interspace, Excisions: Consistent with fragments of neuroma. MRV 04/24/2022 1256 Local . 01 Electronically signed: . Faustino Patel MD, Dermatopathologist NPI- [id number] . 01 Gross description: . Received in formalin and labeled left third interspace neuroma, are four fragments of faulkner soft tissue measuring 1.5 x 0.1 x 0.1 cm to 0.8 x 0.5 x 0.3 cm. All fragments are inked and totally submitted in cassettes A1-A2. ([id number]) /TI 04/23/2022 0851 Local . 01 Pathologist provided ICD-10: G57.62 . 01 CPT . 490873 Specimen Comment: A courtesy copy of this report has been sent to [phone] Performed at: 01 [facility] [address] [place] [address] [address], [place], [place] [id number] MD Aston Tovar MD Phone: [phone]
[2022-04-19] MEDS: LACTATED RINGERS 1,000 ML 42 ML IV (11:59)
[2022-04-19 12:17] VITALS: BP 113/67; PULSE 86; RESP 16; TEMP 37.2; O2SAT 99; BMI 29.6
--- NOTE | 2022-04-19 13:59 | PM.PREOP ---
Pre-operative Note Interval Note History & Physical reviewed/Exam performed by Physician: Yes Changes to H&P: No
[2022-04-19] MEDS: CLINDAMYCIN 600 MG/50 ML PIGGYBACK 50 MG IV (14:00)
[2022-04-19] MEDS: LIDOCAINE 2% INJ MDV 20ML 20 ML INJ (14:26)
[2022-04-19] MEDS: BUPIVACAINE 0.25% (PF) VIAL 5 ML SUBCUT (14:27)
--- NOTE | 2022-04-19 14:28 | SUR.OPER ---
Supine on padded OR bed, head on pillow, arms secured on padded arm boards at <90 degrees abduction, legs uncrossed, safety belt at abdomen, tape over blanket over nonoperative lower leg.
[2022-04-19] MEDS: DEXAMETHASONE 4 MG/ML VIAL INJ (14:45)
[2022-04-19 15:15] VITALS: BP 129/75; PULSE 83; RESP 17; O2SAT 99
--- NOTE | 2022-04-19 15:15 | PM.OP.1 ---
Operative Date/Time/Diagnoses Date of procedure: 04/19/22 Time of procedure: 15:15 Pre-op diagnosis: Left third interspace neuroma Post-op diagnosis: same Procedure & Clinicians Procedure: Left third interspace neuroma excision Same procedure as scheduled: Yes Indications: 67-year-old female presents for for surgery to remove the painful neuroma from the left 3rd interspace. Conservative measures have failed to alleviate her pain and she wished to have surgical intervention at this time. We spoke the risks, potential complications, expected outcomes and alternatives. Consent was signed and there were no contraindications to the procedure at this time. Surgeon: Hoda Angel Click Yes if Unassisted: Yes Anesthesia Type: MAC +/- and Sedation Operative Notes Closure Type: primary Specimen(s): other (Left 3rd interspace neuroma tissue sent to pathology for identification) Estimated Blood Loss (mL): 10 Tourniquet time (min): 16 Procedure in detail: The patient was brought to the operating room and placed on the operating table in the supine position. The Tourniquet was placed about the left ankle. Well padded, appropriately aligned. After induction of mild IV sedation local anesthesia was delivered to the left 3rd interspace of the foot. It was then prepped and draped in the usual aseptic manner. The tourniquet was inflated. After check of anesthesia, an incision was made over the dorsal 3rd interspace of the left foot. The incision was deepened through subcutaneous tissues, being careful to identify and retract all vital neural and vascular structures. All bleeders were cauterized and ligated as necessary. The deep transverse intermetatarsal ligament was cleanly resected and this allowed visualization of the underlying interspace. I was able to note the white shiny tissue of the enlarged nerve. It had an additional branch going slightly distally and plantarly upon observation. Direct manipulation of it gave a response of reflexive tenderness. After verification of anesthesia, the nerve was cleanly resected at its most proximal aspect allowing it to retract into the musculature and the 3 distal locations as it fed into the digits. The area was irrigated with copious amounts of normal sterile saline. The specimen was passed from the table and sent to pathology for identification. The interspace was verified to show no additional nerve tissue. 4 mg of dexamethasone phosphate was infiltrated into the area where the nerve had been excised. And 4-0 Vicryl was used to repair subcutaneous tissues. The tourniquet was deflated, a prompt hyperemic response was seen to the foot. Skin closure performed using 4-0 nylon. The area was dressed with a lightly compressive sterile dressing including Xeroform, 4x4s, conform and Coban. She was placed in stockinette, a postoperative shoe and transferred to the PACU with vital signs stable and vascular status intact. Complications: none Post-operative Condition: stable Disposition: PACU Plan for aftercare: Following a period of postoperative monitoring, the patient will be discharged to home on written and oral postoperative instructions including keeping the dressing dry and intact, no greater than 50% weight to the surgical foot with assistive device, icing behind the surgical foot's knee and elevating the foot when seated home. DVT prevention techniques have been reviewed. For the 1st postoperative visit the dressing will be changed and close to the 3rd postoperative week we will likely remove the sutures.
[2022-04-19 15:20] VITALS: BP 121/77; PULSE 76; RESP 16; O2SAT 100
== END 2022-04-19 15:27 | disposition home or self-care (01) ==
PROVIDERS: Family Provider Psychiatry & Neurology Psychiatry; PCP Family Medicine; Referring Provider Podiatrist; Visit Provider Podiatrist
PROC: (CPT 64782; principal; 2022-04-19 11:30)
DX: G57.82 Other specified mononeuropathies of left lower limb (principal)
CPT/HCPCS: 28080; J1100; J2704; J3490

== ENCOUNTER → 2022-05-11 10:04 | Outpatient (CLI) | payer MEDICARE, MEDICAID, SELFPAY ==
--- NOTE | 2022-05-11 | DI.MG.S_ITS ---
BILATERAL DIGITAL SCREENING MAMMOGRAM 3D/2D WITH CAD: 05/11/2022 CLINICAL: Routine screening. Comparison is made to exams dated: 05/11/2020 mammogram, 02/02/2019 mammogram, and 12/17/2017 mammogram - [facility]. There are scattered areas of fibroglandular density in both breasts (category b / 25%-50% glandular tissue). Current study was also evaluated with a Computer Aided Detection (CAD) system. No significant masses, calcifications, or other findings are seen in either breast. There has been no significant interval change. IMPRESSION: NEGATIVE There is no mammographic evidence of malignancy. A 1 year screening mammogram is recommended. Based on the Tyrer Cuzick model (a risk assessment model) the patient's lifetime risk is 4.8% and her 10 year risk is 2.3%. According to the ACR, ACS, and NCCN guidelines, an annual breast MRI exam along with mammogram is recommended if the patient's lifetime risk is 20% or greater. This exam was interpreted at Station ID: [id number]. NOTE: For mammograms, a report in lay terms will be sent to the patient. Approximately 15% of breast malignancies will not be visualized mammographically. In the management of a palpable breast mass, a negative mammogram must not discourage biopsy of a clinically suspicious lesion. Electronically Signed By: Anthony morales/evaristo:05/13/2022 09:07:02 letter sent: Normal Exam ACR BI-RADS Category 1: Negative 3341F
--- NOTE | 2022-05-11 | DI.MRI.S_ITS ---
PROCEDURE: MR KNEE RT WO/W CON INDICATIONS: ROUTINE SCREENING/MASS OF RT KNEE TECHNIQUE: Noncontrast sagittal PD fast spin echo and T2 fast spin echo with fat saturation, sagittal 3-D FLASH with fat saturation; coronal T1 spin echo and PD fast spin echo with fat saturation, and axial T1 spin echo and PD fast spin echo with fat saturation through the knee. Post-contrast axial, coronal, and sagittal T1 spin echo with fat saturation through the knee. COMPARISON: None. FINDINGS: Image quality: Excellent. Within the posterior compartment of the distal thigh, at the lateral aspect of the musculotendinous junction of the semimembranosus, there is a predominantly fat containing mass measuring roughly 55 mm transverse by 50 mm anteroposterior by 70 mm craniocaudal, which demonstrates moderate ill-defined postcontrast enhancement throughout. There appears to be a central vascular pedicle present within the mass. Menisci: There is vertically and horizontally oriented high T2 signal intensity within the peripheral and middle 3rd of the medial meniscal body and posterior horn demonstrating inferior articular surface extension, indicating complex tearing. There is linear oblique high T2 signal intensity within the anterior horn and body of the lateral meniscus, demonstrating inferior articular surface extension, indicating oblique tearing. Cruciate ligaments: The anterior and posterior cruciate ligaments appear intact. Medial structures: The medial collateral ligament appears intact. Visualized portions of the pes anserinus tendons appear normal. No abnormal bursal fluid. Lateral structures: The lateral collateral ligament, long and short heads of the biceps femoris tendon appear intact. The popliteus tendon appears normal. Iliotibial band appears normal. Anterior structures: The quadriceps and patellar tendons appear intact. There is mild T2 signal elevation within the quadriceps and patellar tendons at the patellar insertion site. Patellar alignment is normal. No femoral trochlear dysplasia or ventral trochlear prominence. No edema in the infrapatellar fat pad. Bones and cartilage: There is mild subchondral cyst formation with surrounding degenerative marrow edema within the central aspect of the tibial plateau. No bone marrow contusions or fractures. There is moderate articular cartilage loss diffusely overlying the weight-bearing aspects of the medial femoral condyle and medial tibial plateau. Moderate articular cartilage loss overlies the medial and lateral patellar facets. Joint space: There is physiologic knee joint fluid. No Lora's cyst. Normal appearing synovial plicae are incidentally noted. IMPRESSION: 1. 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 2. Medial and lateral meniscal tearing. 3. Tricompartmental osteoarthritis with associated articular cartilage loss. 4. Mild quadriceps and patellar tendinopathy. Dictated by: Jen Day M.D. on 05/13/2022 at 9:21 Approved by: Jen Day M.D. on 05/13/2022 at 9:29
== END ==
PROVIDERS: Family Provider Psychiatry & Neurology Psychiatry; PCP Family Medicine; Referring Provider Orthopaedic Surgery; Visit Provider Orthopaedic Surgery
DX: Z12.31 Encounter for screening mammogram for malignant neoplasm of breast (principal); S83.231A Complex tear of medial meniscus, current injury, right knee, initial encounter; S83.281A Other tear of lateral meniscus, current injury, right knee, initial encounter; M17.0 Bilateral primary osteoarthritis of knee; M25.561 Pain in right knee; M71.21 Synovial cyst of popliteal space [Baker], right knee; R22.41 Localized swelling, mass and lump, right lower limb
CPT/HCPCS: 73723; 77063; 77067; A9579

== ENCOUNTER → 2023-01-31 09:35 | Outpatient (CLI) | payer MEDICARE, SELFPAY ==
--- NOTE | 2023-01-31 | DI.RAD.S_ITS ---
Bone Density Report Name: TAMMIE ANDERSON Age: 68 Sex: Female Ethnicity: White Date of : 1955 Indication: postmenopausal; screening for osteoporosis; Referring Provider: ROBB BOLIVAR Study: Bone densitometry was performed. Exam Date: January 31, 2023 Accession number: [id number] Bone Density: Region BMD T-score Z-score Classification AP Spine(L1-L4) 0.946 -0.9 0.9 Normal Femoral Neck (Left) 0.745 -0.9 0.6 Normal Total Hip (Left) 0.928 -0.1 1.2 Normal Femoral Neck (Right) 0.748 -0.9 0.6 Normal Total Hip (Right) 0.897 -0.4 0.9 Normal Total Hip Mean 0.913 -0.3 1.1 Normal World Health Organization criteria for BMD impression classify patients as: Normal (T-score at or above -1.0), Osteopenia (T-score between -1.0 and -2.5), or Osteoporosis (T-score at or below -2.5). 10-year Fracture Risk: FRAX not reported because: All T-scores for Spine Total, Hip Total, Femoral Neck at or above -1.0 Previous Exams: -- Region Exam Age BMD T-score BMD Change BMD Change Date g/cm2 vs Baseline vs Previous -- AP Spine (L1-L4) 01/31/2023 68 0.946 -0.9 -0.117 (-11.0%)# -0.075 (-7.3%)# 10/06/2018 63 1.021 -0.2 -0.042 (-3.9%)* -0.042 (-3.9%)* 04/14/2006 51 1.063 0.1 Total Hip(Left) 01/31/2023 68 0.928 -0.1 -0.029 (-3.1%)# -0.002 (-0.2%)# 10/06/2018 63 0.930 -0.1 -0.027 (-2.9%)* -0.027 (-2.9%)* 04/14/2006 51 0.957 0.1 Total Hip(Right) 01/31/2023 68 0.897 -0.4 -0.057 (-5.9%)# -0.045 (-4.7%)# 10/06/2018 63 0.942 0.0 -0.012 (-1.3%) -0.012 (-1.3%) 04/14/2006 51 0.954 0.1 -- *Denotes significance at 95% confidence level, LSC for AP Spine = 0.022 g/cm2, LSC for Total Hip = 0.027 g/cm2 # Denotes dissimilar scan types or analysis methods Impression: The patient has normal bone mass. No significant bone loss was observed. Discussion: BONE DENSITY IS ABOVE THE MINIMUM DESIRABLE LEVEL AT ALL SKELETAL SITES TESTED. This patient's bone mineral density is above the minimum desirable level (T-score -1.0 or better) at all sites measured. The patient should follow a healthful lifestyle (good nutrition with adequate calcium and vitamin D, and appropriate weight-bearing exercise). Follow-Up: Consider repeating this study in 5 years or sooner if there is some new clinical indication. Reported by: [facility] K[facility]EN CARTER M.D. on 01/31/2023 10:17:00 AM.
== END ==
PROVIDERS: Family Provider Psychiatry & Neurology Psychiatry; PCP Family Medicine; Referring Provider Family Medicine; Visit Provider Family Medicine
DX: Z78.0 Asymptomatic menopausal state (principal); Z13.820 Encounter for screening for osteoporosis; Z90.710 Acquired absence of both cervix and uterus
CPT/HCPCS: 77080

== ENCOUNTER → 2023-02-19 09:49 | Outpatient (CLI) | payer MEDICARE, SELFPAY ==
[2023-02-19 10:50] LABS: Cholesterol 234 mg/dL (140-199); HDL Cholesterol 69 mg/dL (40-60); LDL Cholesterol Calculated 152 mg/dL (<100); Triglycerides 67 mg/dL (35-150)
== END ==
PROVIDERS: Family Provider Psychiatry & Neurology Psychiatry; PCP Family Medicine; Referring Provider Family Medicine; Visit Provider Family Medicine
DX: E78.5 Hyperlipidemia, unspecified (principal)
CPT/HCPCS: 36415; 80061

== ENCOUNTER → 2023-06-23 12:53 | Outpatient (CLI) | payer MEDICARE, SELFPAY ==
--- NOTE | 2023-06-23 12:54 | DI.MG.S_ITS ---
BILATERAL DIGITAL SCREENING MAMMOGRAM 3D/2D WITH CAD: 06/23/2023 CLINICAL: Routine screening. Comparison is made to exams dated: 05/11/2022 mammogram, 05/11/2020 mammogram, and 02/02/2019 mammogram - [facility]. There are scattered areas of fibroglandular density in both breasts (category b / 25%-50% glandular tissue). Current study was also evaluated with a Computer Aided Detection (CAD) system. No significant masses, calcifications, or other findings are seen in either breast. There has been no significant interval change. IMPRESSION: NEGATIVE There is no mammographic evidence of malignancy. A 1 year screening mammogram is recommended. Based on the Tyrer Cuzick model (a risk assessment model) the patient's lifetime risk is 4.6% and her 10 year risk is 2.3%. According to the ACR, ACS, and NCCN guidelines, an annual breast MRI exam along with mammogram is recommended if the patient's lifetime risk is 20% or greater. This exam was interpreted at Station ID: [id number]. NOTE: For mammograms, a report in lay terms will be sent to the patient. Approximately 15% of breast malignancies will not be visualized mammographically. In the management of a palpable breast mass, a negative mammogram must not discourage biopsy of a clinically suspicious lesion. Electronically Signed By: Michael lugo/evaristo:06/23/2023 16:24:03 letter sent: Normal Exam ACR BI-RADS Category 1: Negative 3341F
--- NOTE | 2023-06-23 12:55 | DI.CT.S_ITS ---
PROCEDURE: CT LUNG LOW DOSE SCREENING INDICATIONS: history of nicotine dependence TECHNIQUE: Noncontrast 2.0-2.5 mm thick sections acquired from the pulmonary apices to the posterior costophrenic angles. 7 mm thick axial MIP, and 5 mm coronal and sagittal reformats were then acquired. For radiation dose reduction, the following was used: automated exposure control, adjustment of mA and/or kV according to patient size. COMPARISON: None. FINDINGS: Image quality: Diagnostic. Lungs: Multiple subsolid pulmonary nodule with central solid component and peripheral ground-glass component in the right lower lobe, with the larger 1 measuring 5 mm. Mild ground-glass opacity with sub 6 mm pulmonary nodule in the medial right lower lobe. No pleural effusion or pneumothorax. No pulmonary edema or focal consolidation. Mediastinal/soft tissue: Mild calcification of the thoracic aorta. No thoracic aortic aneurysm. Heart is normal in size. No pericardial effusion. Severe LAD coronary artery calcification. Mild aortic annular calcification. No mediastinal, hilar, or axillary lymphadenopathy. Small hiatal hernia. Visualized upper abdomen: Small hypoattenuating lesion in hepatic segment 8. Additional small hypoattenuating lesion in hepatic segment 2. These 2 lesions are grossly unchanged from CT abdomen pelvis on 10/21/2021. Status post cholecystectomy. Bones: Mild levocurvature at the thoracolumbar junction. Multilevel, moderate degenerative disc disease of the thoracic spine. IMPRESSION: 1. Multiple subsolid pulmonary nodules in the right lower lobe, with the largest measuring 5 mm, which may be inflammatory versus infectious etiology. 2. Mild ground-glass opacity with sub 6 mm pulmonary nodules in the medial right lower lobe, inflammatory versus infectious etiology. LUNG-RADS 0; recommend follow-up CT chest in 3 months. Clinically Significant Non-pulmonary Findings: None. Dictated by: Eunice Oconnor M.D. on 06/23/2023 at 20:30 Approved by: Eunice Oconnor M.D. on 06/23/2023 at 20:43
== END ==
LOC: MAMMO 12:54
PROVIDERS: Family Provider Psychiatry & Neurology Psychiatry; PCP Family Medicine; Referring Provider Family Medicine; Visit Provider Family Medicine
DX: Z12.31 Encounter for screening mammogram for malignant neoplasm of breast (principal); Z87.891 Personal history of nicotine dependence; R92.323 Mammographic fibroglandular density, bilateral breasts; Z12.2 Encounter for screening for malignant neoplasm of respiratory organs; R91.8 Other nonspecific abnormal finding of lung field; I25.10 Atherosclerotic heart disease of native coronary artery without angina pectoris; K44.9 Diaphragmatic hernia without obstruction or gangrene; K76.9 Liver disease, unspecified; M51.34 Other intervertebral disc degeneration, thoracic region; Z90.49 Acquired absence of other specified parts of digestive tract
CPT/HCPCS: 71271; 77063; 77067

== ENCOUNTER → 2023-07-23 13:05 | Outpatient (CLI) | payer MEDICARE, SELFPAY | PROVIDERS: Family Provider Psychiatry & Neurology Psychiatry; PCP Family Medicine; Referring Provider Internal Medicine Critical Care Medicine; Visit Provider Internal Medicine Critical Care Medicine | DX: R91.8 Other nonspecific abnormal finding of lung field (principal); F17.210 Nicotine dependence, cigarettes, uncomplicated | CPT/HCPCS: 94060; 94726; 94729 ==

== ENCOUNTER → 2023-10-08 10:43 | Outpatient (CLI) | payer MEDICARE, SELFPAY ==
--- NOTE | 2023-10-08 | DI.RAD.S_ITS ---
PROCEDURE: XR HIP W PEL IF DONE BILAT 2V INDICATIONS: bilateral hip pain TECHNIQUE: AP pelvis with lateral view(s) of both hip(s). COMPARISON: None. FINDINGS: Bones: No fractures or dislocations. Pelvic ring appears intact. No suspicious bony lesions. Mild bilateral osteoarthritis to both joints and SI joints. Soft tissues: The visualized bowel gas pattern is normal. No suspicious soft tissue calcifications. Clips are seen within the left hemipelvis. IMPRESSION: 1. No acute fracture or dislocation. 2. Mild bilateral osteoarthritis to both hip joints and SI joints. Dictated by: Lc Myers M.D. on 10/08/2023 at 16:17 Approved by: Lc Myers M.D. on 10/08/2023 at 16:21
== END ==
PROVIDERS: Family Provider Psychiatry & Neurology Psychiatry; PCP Internal Medicine; Referring Provider Internal Medicine; Visit Provider Internal Medicine
DX: M16.0 Bilateral primary osteoarthritis of hip (principal); M46.1 Sacroiliitis, not elsewhere classified; M25.551 Pain in right hip; M25.552 Pain in left hip
CPT/HCPCS: 73521

== ENCOUNTER → 2024-03-12 09:53 | Outpatient (CLI) | payer MEDICARE, SELFPAY ==
--- NOTE | 2024-03-12 09:58 | DI.CT.S_ITS ---
PROCEDURE: CT CHEST WO CON INDICATIONS: recheck on pulmonary nodules TECHNIQUE: Noncontrast 5 mm thick sections acquired from the pulmonary apices to the posterior costophrenic angles. 1 mm lung window, 5 mm thick coronal and sagittal and 7 mm axial MIP reformats were then acquired. For radiation dose reduction, the following was used: automated exposure control, adjustment of mA and/or kV according to patient size. COMPARISON: [facility], CT, CT LUNG LOW DOSE SCREENING, 06/23/2023, 13:26. FINDINGS: Image quality: Diagnostic Lungs and pleura: No new or enlarging suspicious pulmonary nodule. No dense airspace consolidation. No pleural effusions. Ill-defined ground-glass opacity in the medial right lower lobe is decreased from prior, may represent atelectasis on today's study, no suspicious solid component. There is a new 4 mm nodule in the right lower lobe (3/223) There is a new 3 mm nodule also in the right lower lobe (3/188) Mediastinum, heart, and esophagus: Mild nonspecific distal esophageal wall thickening. Coronary and annular cardiac calcifications. Normal heart size. No pathologic lymphadenopathy by size criteria. Chest wall and thyroid: Unremarkable chest wall. Thyroid is unremarkable. Upper abdomen: Similar scattered liver cysts. Cholecystectomy clips. Bones: Degenerative changes. IMPRESSION: Previous ground-glass opacities and small solid components are decreased, likely infectious/inflammatory. There are 2 new solid nodules measuring 3-4 mm within the right lower lobe. Six months follow-up low-dose chest CT is recommended for surveillance. Other findings above. Dictated by: Gary Bonds M.D. on 03/12/2024 at 14:07 Approved by: Gary Bonds M.D. on 03/12/2024 at 14:14
== END ==
LOC: CT 09:56
PROVIDERS: Family Provider Psychiatry & Neurology Psychiatry; PCP Internal Medicine; Referring Provider Internal Medicine Critical Care Medicine; Visit Provider Internal Medicine Critical Care Medicine
DX: R91.8 Other nonspecific abnormal finding of lung field (principal); Z90.49 Acquired absence of other specified parts of digestive tract
CPT/HCPCS: 71250

== ENCOUNTER → 2024-08-04 13:26 | Outpatient (CLI) | payer MEDICARE, SELFPAY ==
--- NOTE | 2024-08-04 13:27 | DI.MG.S_ITS ---
MM screening mammo BI: 08/04/2024. BI-RADS: 1 CLINICAL: 69-year old female for bilateral screening mammogram. Tyrer-Cuzick lifetime risk of 3.9%. No personal or first-degree family history of breast cancer. The patient is status-post reduction mammoplasty. PRIOR EXAMS 06/23/2023, 05/11/2022, 05/11/2020. MAMMOGRAPHY TECHNIQUE: 2D and 3D (tomosynthesis) digital mammographic views obtained, with additional images as needed for full coverage. Current study was also evaluated with a Computer Aided Detection (CAD) system. DENSITY B. There are scattered areas of fibroglandular density. MAMMOGRAPHY FINDINGS Bilateral: No suspicious mass, asymmetry, microcalcification, or other abnormality seen. No significant change from comparison. IMPRESSION: * No evidence of malignancy. RECOMMENDATIONS Bilateral * Annual screening mammography. OVERALL ASSESSMENT CATEGORY BI-RADS-1: Negative. The [employer] recommends annual screening mammography beginning at age 40 for women with average risk of breast cancer. ELECTRONICALLY SIGNED: Adrian Donnelly M.D. on 08/04/2024 at 04:24:13 PM PT Interpreting Station ID: [id number]
== END ==
LOC: MAMMO 13:27
PROVIDERS: Family Provider Psychiatry & Neurology Psychiatry; PCP Family Medicine; Referring Provider Family Medicine; Visit Provider Family Medicine
DX: Z12.31 Encounter for screening mammogram for malignant neoplasm of breast (principal)
CPT/HCPCS: 77063; 77067

== ENCOUNTER 2024-11-22 20:41 | Emergency (ER) | payer MEDICARE, SELFPAY ==
[2024-11-22] VITALS (9 sets, daily range): BP systolic 107–135; BP diastolic 59–74; PULSE 75–108; RESP 11–43; O2SAT 93–97; BMI 23.0
--- NOTE | 2024-11-22 21:06 | DI.CT.S_ITS ---
PROCEDURE: CT HEAD/BRAIN WO CON INDICATIONS: left weakness difficulty swallowing TECHNIQUE: Noncontrast 4.5 mm thick angled axial sections acquired from the foramen magnum to the vertex, with coronal and sagittal reformats. For radiation dose reduction, the following was used: automated exposure control, adjustment of mA and/or kV according to patient size. COMPARISON: [facility], CT, CT HEAD WITHOUT CONTRAST, 09/28/2021, 0:55. FINDINGS: Image quality: Diagnostic. CSF spaces: Basal cisterns are patent. No extra-axial fluid collections. Ventricles are normal in size and shape. Brain: No midline shift. No intracranial mass effect or hemorrhage. No area of hypodensity in a large vascular distribution to suggest acute infarction. Periventricular hypodensity consistent with chronic microvascular ischemic change. Age-related parenchymal loss. Skull and face: Calvarium and visualized facial bones are intact, without suspicious lesions. Sinuses: Mucosal thickening in the left maxillary sinus. Mastoids are clear. IMPRESSION: No acute intracranial pathology. Dictated by: Anthony Curry M.D. on 11/22/2024 at 22:24 Approved by: Anthony Curry M.D. on 11/22/2024 at 22:27
--- NOTE | 2024-11-22 21:06 | DI.CT.S_ITS ---
PROCEDURE: CT ANGIO HEAD AND NECK INDICATIONS: Left weakness difficulty swallowing TECHNIQUE: After the administration of intravenous contrast, 1 mm thick sections acquired from the aortic arch through the [place] of [place]. 3-dimensional xsbvudf-prnadmzev-pvpbrfyutj (MIP) and/or volume rendering reformats were acquired of the central intracranial vasculature and neck separately. For radiation dose reduction, the following was used: automated exposure control, adjustment of mA and/or kV according to patient size. COMPARISON: [facility], CT, CT HEAD/BRAIN WO [facility], 11/22/2024, 21:24. FINDINGS: Image quality: Diagnostic. Cerebral CT Angiogram: Internal carotid arteries: No acute findings. Intracranial ICA are patent with no significant stenosis. No occlusion. No aneurysm. Anterior cerebral arteries: Unremarkable. No significant stenosis. No occlusion. No aneurysm. Middle cerebral arteries: Unremarkable. No significant stenosis. No occlusion. No aneurysm. Posterior cerebral arteries: Bilateral posterior communicating arteries are seen. No significant stenosis. No occlusion. No aneurysm. Basilar artery: Unremarkable. No significant stenosis. No occlusion. No aneurysm. Vertebral arteries: Unremarkable as visualized. Dural venous sinuses: Unremarkable given phase of enhancement. Other: Arterial phase appearance of the brain parenchyma is unremarkable. Neck CT Angiogram: Internal carotid arteries: Mild calcified plaque at the right carotid bulb. No significant stenosis. No dissection or occlusion. Common carotid arteries: Unremarkable. No significant stenosis. No dissection or occlusion. External carotid arteries: Unremarkable. No occlusion. Vertebral arteries: Unremarkable. No significant stenosis. No dissection or occlusion. Aortic Arch and Mediastinum: Partially visualized aortic arch unremarkable without evidence of aneurysm. Origins of the great vessels unremarkable. Other: Arterial phase soft tissues of the neck and chest are unremarkable. Bones: No suspicious osseous lesion. Moderate degenerative changes. IMPRESSION: No significant intracranial arterial abnormality is seen. No significant abnormality is seen within the arteries of the neck. Any quantitative measurements of stenosis were performed using NASCET criteria. Dictated by: Anthony Curry M.D. on 11/22/2024 at 22:27 Approved by: Anthony Curry M.D. on 11/22/2024 at 22:33
--- NOTE | 2024-11-22 21:07 | EKG_ITS ---
[facility] [address] [place] [id number] Test Date: 2024-11-22 Pat Name: Jody Nelson Department: [facility] Room: Gender: Female Credit Office Manager: BRIDGET : 1955 Requested By: Order Number: [id number] Reading MD: Tim Goss Measurements Intervals [place] Rate: 93 P: 72 [place]: 156 QRS: 56 QRSD: 92 T: 67 QT: 362 QTc: 450 Interpretive Statements Normal sinus rhythm Electronically Signed On 11-24-2024 8:13:26 PDT by Tim Goss
--- NOTE | 2024-11-22 21:15 | ED.NEUROSD ---
HPI - Neuro Symptoms/Deficit <Melida Shea, DO - Last Filed: 12/02/24 10:35> General Chief Complaint: Neuro Symptoms/Deficit Stated Complaint: trouble swallowing slurred speech Time Seen by Provider: 11/22/24 21:06 Source: patient Mode of arrival: EMS History of Present Illness HPI Narrative: Patient is a 69-year-old female history of ADHD hyperlipidemia presenting to day with variety of symptoms. She reports that for weeks she has been a little dizzy and off balance she says that she has been falling. She maybe is having some left arm kind of pain or numbness. Today she started having difficulty swallowing she feels like it is dry in her throat. Some of her speak sounds little bit slurred. Her boyfriend who is currently out of town she says he needs heard a repeat things for him. No known history of stroke she is not on anticoagulation. No chest pain. She has not had fever or illness. On Anticoagulants: No Related Data Home Medications ?Medication ?Instructions ?Recorded ?Confirmed dextroamphetamine-amphetamine ER 10 mg PO BID ##1 01/18/11 07/10/23 10 mg 24hr capsule,extend release (Adderall XR) lamotrigine 100 mg tablet 200 mg PO QDAY ##0 01/18/11 07/10/23 (Lamictal) escitalopram oxalate 20 mg tablet 20 mg PO DAILY 05/26/18 07/10/23 (Lexapro) omeprazole 20 mg capsule,delayed 20 mg PO DAILY 04/19/22 07/10/23 release albuterol sulfate 90 mcg/actuation 2 puff inhalation Q4-6H PRN 07/10/23 07/10/23 aerosol inhaler atorvastatin 40 mg tablet 40 mg PO DAILY 07/10/23 07/10/23 Previous Rx's ?Medication ?Instructions ?Recorded ondansetron 4 mg disintegrating 4 mg PO Q6H PRN nausea and 06/15/20 tablet vomiting #14 tabs cyclobenzaprine 10 mg tablet 10 mg PO BEDTIME PRN muscle spasm 11/22/24 #7 tabs cyclobenzaprine 10 mg tablet 10 mg PO BEDTIME PRN muscle spasm 11/23/24 #7 tabs Allergies Allergy/AdvReac Type Severity Reaction Status Date / Time codeine Allergy Severe THROAT Verified 11/22/24 20:45 CLOSES Penicillins Allergy Unknown Verified 11/22/24 20:45 Review of Systems <Melida Valdivia DO - Last Filed: 12/02/24 10:35> Hematologic/Lymphatic On Anticoagulants: No Patient History <Melida Valdivia DO - Last Filed: 12/02/24 10:35> Medical History ADHD Depression Surgical History Hx of cholecystectomy H/O: hysterectomy Status post breast reduction History of Social History marital status: household members: significant other alcohol intake: current substance use type: marijuana tobacco type: cigarettes and vaping alcohol intake frequency: holidays/special occasions only Exam <Melida Valdivia DO - Last Filed: 12/02/24 10:35> Initial Vital Signs Initial Vital Signs: Vital Signs Pulse Rate 102 H 11/22/24 20:44 Respiratory Rate 26 H 11/22/24 20:44 Pulse Oximetry 95 11/22/24 20:44 GENERAL: Alert pleasant 69-year-old female and in no acute distress. HEENT: Head atraumatic,EOMI, pupils reactive, face symmetric, moist mucous membranes CARDIOVASCULAR: Regular rate and rhythm without murmurs, rubs or gallops. RESPIRATORY: Breath sounds equal bilaterally, no wheezes rales or rhonchi. ABDOMEN: Soft, nontender. Normoactive bowel sounds all 4 quadrants. No guarding or rebound. EXTREMITIES: Normal range of motion, no clubbing or edema. Neurovascularly intact NEUROLOGICAL: Alert and oriented x4.Normal gait and speech. Cranial nerves II through XII grossly intact. Good [id number], good [id number], strength equal bilaterally, no dysarthria or aphasia, sensation in tact to soft touch bilaterally, no visual changes, no facial droop SKIN: Warm, dry, no laceration, no petechiae, no rashes or lesions. <Dom Tilley MD - Last Filed: 11/23/24 00:21> Initial Vital Signs Initial Vital Signs: Vital Signs Pulse Rate 102 H 11/22/24 20:44 Respiratory Rate 26 H 11/22/24 20:44 Pulse Oximetry 95 11/22/24 20:44 Scores <Melida Valdivia DO - Last Filed: 12/02/24 10:35> NIH Stroke Scale Level of Conciousness: Alert, keenly responsive Ask month/age: Answers both questions correctly. Open/close eyes, close hand: Performs both tasks correctly Best gaze horizontal: Normal Visual evans: No visual loss Facial palsy: Normal symetrical movement Left arm drift: No drift for full 10 sec Right arm drift: No drift for full 10 sec Left leg drift: No drift for full 5 sec Right leg drift: No drift for full 5 sec Limb ataxia: Absent Sensory on face/arms/legs: Normal, no sensory loss Best language: Mild to moderate, slurs some words Dysarthria: Normal Extinction or inattention: No abnormality Total NIH Stroke scale score: 1 <Dom Tilley MD - Last Filed: 11/23/24 00:21> NIH Stroke Scale Total NIH Stroke scale score: 1 Course <Melida Valdivia DO - Last Filed: 12/02/24 10:35> Orders Ordered: Discontinued Medications Aspirin (Aspirin 81 Mg Chew Tab) 324 mg PO NOW ONE Stop: 11/22/24 22:57 Last Admin: 11/22/24 23:03 Dose: 324 mg Documented By: BEVERLY Cyclobenzaprine HCl (Cyclobenzaprine 10 Mg Prepack) 1 bottle MISC DIRECTED ONE Stop: 11/22/24 23:50 Last Admin: 11/23/24 00:15 Dose: 1 bottle Documented By: BEVERLY Sodium Chloride (Normal Saline 0.9%) 1,000 mls @ 1,000 mls/hr IV BOLUS ONE Stop: 11/22/24 23:57 Last Admin: 11/22/24 23:03 Dose: 1,000 mls/hr Documented By: BEVERLY Vital Signs Vital signs: Vital Signs - 8 hr 11/22/24 20:44 11/22/24 20:45 11/22/24 21:00 Pulse Rate 102 H 108 H 95 H Respiratory Rate 26 H 18 17 Blood Pressure 122/74 Pulse Oximetry 95 95 93 Oxygen Delivery Method Room Air 11/22/24 21:00 11/22/24 21:30 11/22/24 22:00 Pulse Rate 95 H 94 H Respiratory Rate 29 H 43 H Blood Pressure 115/64 Pulse Oximetry 95 95 Oxygen Delivery Method 11/22/24 22:30 11/22/24 22:36 11/22/24 22:36 Pulse Rate 90 87 Respiratory Rate 40 H 24 Blood Pressure 107/68 Pulse Oximetry 97 95 Oxygen Delivery Method 11/22/24 23:00 11/22/24 23:00 11/22/24 23:30 Pulse Rate 90 75 Respiratory Rate 15 11 L Blood Pressure 107/59 L Pulse Oximetry 93 94 Oxygen Delivery Method 11/22/24 23:30 Pulse Rate Respiratory Rate Blood Pressure 135/65 Pulse Oximetry Oxygen Delivery Method <Dom Tilley MD - Last Filed: 11/23/24 00:21> Orders Ordered: Discontinued Medications Aspirin (Aspirin 81 Mg Chew Tab) 324 mg PO NOW ONE Stop: 11/22/24 22:57 Last Admin: 11/22/24 23:03 Dose: 324 mg Documented By: BEVERLY Cyclobenzaprine HCl (Cyclobenzaprine 10 Mg Prepack) 1 bottle MISC DIRECTED ONE Stop: 11/22/24 23:50 Last Admin: 11/23/24 00:15 Dose: 1 bottle Documented By: BEVERLY Sodium Chloride (Normal Saline 0.9%) 1,000 mls @ 1,000 mls/hr IV BOLUS ONE Stop: 11/22/24 23:57 Last Admin: 11/22/24 23:03 Dose: 1,000 mls/hr Documented By: BEVERLY Reevaluation(s) Reevaluation #1: Upon re-evaluation, patient is able to swallow liquids but still having a sensation of difficulty swallowing some. She is eager to be discharged. Time: 23:53 Vital Signs Vital signs: Vital Signs - 8 hr 11/22/24 20:44 11/22/24 20:45 11/22/24 21:00 Pulse Rate 102 H 108 H 95 H Respiratory Rate 26 H 18 17 Blood Pressure 122/74 Pulse Oximetry 95 95 93 Oxygen Delivery Method Room Air 11/22/24 21:00 11/22/24 21:30 11/22/24 22:00 Pulse Rate 95 H 94 H Respiratory Rate 29 H 43 H Blood Pressure 115/64 Pulse Oximetry 95 95 Oxygen Delivery Method 11/22/24 22:30 11/22/24 22:36 11/22/24 22:36 Pulse Rate 90 87 Respiratory Rate 40 H 24 Blood Pressure 107/68 Pulse Oximetry 97 95 Oxygen Delivery Method 11/22/24 23:00 11/22/24 23:00 11/22/24 23:30 Pulse Rate 90 75 Respiratory Rate 15 11 L Blood Pressure 107/59 L Pulse Oximetry 93 94 Oxygen Delivery Method 11/22/24 23:30 Pulse Rate Respiratory Rate Blood Pressure 135/65 Pulse Oximetry Oxygen Delivery Method MDM - Neuro Symptoms/Deficit <Melida Shea, DO - Last Filed: 12/02/24 10:35> Lab Data 11/22/24 20:43 11/22/24 20:43 Labs: Lab Results 11/22/24 11/22/24 11/22/24 Range/Units 20:43 21:40 22:58 WBC 6.3 (4.5-11.0) X10^3/uL RBC 3.85 L (4.0-5.2) X10^6/uL Hgb 11.8 L (12.0-16.0) g/dL Hct 34.1 L (36-46) % MCV 88.5 (80-100) fL MCH 30.7 (26-34) PG MCHC 34.7 (30-36) % RDW 14.4 (11.6-14.8) % Plt Count 254 (150-400) X10^3/uL Neut % (Auto) 71.0 (50-75) % Lymph % (Auto) 21.5 L (25-40) % [place] % (Auto) 6.7 (3-14) % Eos % (Auto) 0.0 L (2-4) % Baso % (Auto) 0.8 (0-2) % Neut # (Auto) 4500 (6534-5804) /uL Lymph # (Auto) 1400 (9555-8485) /uL [place] # (Auto) 400 (0-900) /uL Eos # (Auto) 0 (0-450) /uL Baso # (Auto) 0 (0-100) /uL PT 10.9 (9.4-12.5) SECONDS INR 1.0 (0.9-1.3) APTT 29 (25.1-36.5) SECONDS Sodium 134 L (137-145) mmol/L Potassium 3.8 (3.4-5.1) mmol/L Chloride 100 (98-107) mmol/L Carbon Dioxide 28 (22-32) mmol/L BUN 14 (7-17) mg/dL Creatinine 0.87 (0.52-1.04) mg/dL Estimated GFR > 60 (>60) mL/min BUN/Creatinine Ratio 16.1 (6-22) Glucose 105 H (70-99) mg/dL Calcium 9.2 (8.4-10.2) mg/dL Total Bilirubin 0.4 (0.2-1.3) mg/dL AST 32 (14-36) IU/L ALT 20 (<35) IU/L Alkaline Phosphatase 87 (38-126) U/L Total Creatine Kinase 85 (30-135) U/L Troponin I < 0.012 (0.01-0.034) ng/mL Total Protein 6.5 (6.3-8.2) g/dL Albumin 4.1 (3.5-5.0) g/dL Globulin 2.4 (1.7-4.1) g/dL Albumin/Globulin Ratio 1.7 (1.0-2.8) Urine Color Yellow Urine Appearance Clear Urine pH 8.0 (4.5-8.0) Ur Specific [place] <=1.005 (1.000-1.035) Urine Protein Negative (Negative) Urine Glucose (UA) Negative (Negative) g/dL Urine Ketones Negative (NEGATIVE) Urine Occult Blood Negative (Negative) Urine Nitrate Negative (Negative) Urine Bilirubin Negative (NEGATIVE) Urine Urobilinogen 0.2 (0.2) E.U./dL Ur Leukocyte Esterase Trace H (NEGATIVE) Urine RBC None seen (0-5/HPF) Urine WBC 0-1/hpf (0-5/HPF) Ur Squamous Epith Cells 0-1 /hpf (0-5/HPF) Urine Bacteria None seen (None) Ur Culture Indicated? Cult not indicated Vol Urine Centrifuged 10ml (spun) U Opiates 300ng/mL cut Negative (Negative) Ur Oxycodone Screen Negative (Negative) Urine Methadone Screen Negative (Negative) Ur Barbiturates Screen Negative (Negative) U Tricyclic Antidepress Negative (Negative) Ur Phencyclidine Scrn Negative (Negative) Ur Amphetamines Screen Positive H (Negative) U Methamphetamines Scrn Negative (Negative) Ur MDMA Scrn (Ecstasy) Negative (Negative) U Benzodiazepines Scrn Negative (Negative) Urine Cocaine Screen Negative (Negative) U Marijuana (THC) Screen Positive H (Negative) Urine Specific [place] (Normal) Ethyl Alcohol < 10 (<10) mg/dL Ur Creatinine (Normal) SARS-CoV-2 (PCR) Negative (Negative) 11/22/24 Range/Units 22:58 WBC (4.5-11.0) X10^3/uL RBC (4.0-5.2) X10^6/uL Hgb (12.0-16.0) g/dL Hct (36-46) % MCV (80-100) fL MCH (26-34) PG MCHC (30-36) % RDW (11.6-14.8) % Plt Count (150-400) X10^3/uL Neut % (Auto) (50-75) % Lymph % (Auto) (25-40) % [place] % (Auto) (3-14) % Eos % (Auto) (2-4) % Baso % (Auto) (0-2) % Neut # (Auto) (8375-2873) /uL Lymph # (Auto) (8390-9285) /uL [place] # (Auto) (0-900) /uL Eos # (Auto) (0-450) /uL Baso # (Auto) (0-100) /uL PT (9.4-12.5) SECONDS INR (0.9-1.3) APTT (25.1-36.5) SECONDS Sodium (137-145) mmol/L Potassium (3.4-5.1) mmol/L Chloride (98-107) mmol/L Carbon Dioxide (22-32) mmol/L BUN (7-17) mg/dL Creatinine (0.52-1.04) mg/dL Estimated GFR (>60) mL/min BUN/Creatinine Ratio (6-22) Glucose (70-99) mg/dL Calcium (8.4-10.2) mg/dL Total Bilirubin (0.2-1.3) mg/dL AST (14-36) IU/L ALT (<35) IU/L Alkaline Phosphatase (38-126) U/L Total Creatine Kinase (30-135) U/L Troponin I (0.01-0.034) ng/mL Total Protein (6.3-8.2) g/dL Albumin (3.5-5.0) g/dL Globulin (1.7-4.1) g/dL Albumin/Globulin Ratio (1.0-2.8) Urine Color Urine Appearance Urine pH Normal (4.5-8.0) Ur Specific [place] (1.000-1.035) Urine Protein (Negative) Urine Glucose (UA) (Negative) g/dL Urine Ketones (NEGATIVE) Urine Occult Blood (Negative) Urine Nitrate (Negative) Urine Bilirubin (NEGATIVE) Urine Urobilinogen (0.2) E.U./dL Ur Leukocyte Esterase (NEGATIVE) Urine RBC (0-5/HPF) Urine WBC (0-5/HPF) Ur Squamous Epith Cells (0-5/HPF) Urine Bacteria (None) Ur Culture Indicated? Vol Urine Centrifuged U Opiates 300ng/mL cut (Negative) Ur Oxycodone Screen (Negative) Urine Methadone Screen (Negative) Ur Barbiturates Screen (Negative) U Tricyclic Antidepress (Negative) Ur Phencyclidine Scrn (Negative) Ur Amphetamines Screen (Negative) U Methamphetamines Scrn (Negative) Ur MDMA Scrn (Ecstasy) (Negative) U Benzodiazepines Scrn (Negative) Urine Cocaine Screen (Negative) U Marijuana (THC) Screen (Negative) Urine Specific [place] Normal (Normal) Ethyl Alcohol (<10) mg/dL Ur Creatinine Normal (Normal) SARS-CoV-2 (PCR) (Negative) Imaging Data CTA - brain/neck: Radiologist's Impression: PROCEDURE: CT ANGIO HEAD AND NECK INDICATIONS: Left weakness difficulty swallowing TECHNIQUE: After the administration of intravenous contrast, 1 mm thick sections acquired from the aortic arch through the [place] of [place]. 3-dimensional zmuoine-zpcvadryo-hpclvxkjxp (MIP) and/or volume rendering reformats were acquired of the central intracranial vasculature and neck separately. For radiation dose reduction, the following was used: automated exposure control, adjustment of mA and/or kV according to patient size. COMPARISON: [facility], CT, CT HEAD/BRAIN WO CON, 11/22/2024, 21:24. FINDINGS: Image quality: Diagnostic. Cerebral CT Angiogram: Internal carotid arteries: No acute findings. Intracranial ICA are patent with no significant stenosis. No occlusion. No aneurysm. Anterior cerebral arteries: Unremarkable. No significant stenosis. No occlusion. No aneurysm. Middle cerebral arteries: Unremarkable. No significant stenosis. No occlusion. No aneurysm. Posterior cerebral arteries: Bilateral posterior communicating arteries are seen. No significant stenosis. No occlusion. No aneurysm. Basilar artery: Unremarkable. No significant stenosis. No occlusion. No aneurysm. Vertebral arteries: Unremarkable as visualized. Dural venous sinuses: Unremarkable given phase of enhancement. Other: Arterial phase appearance of the brain parenchyma is unremarkable. Neck CT Angiogram: Internal carotid arteries: Mild calcified plaque at the right carotid bulb. No significant stenosis. No dissection or occlusion. Common carotid arteries: Unremarkable. No significant stenosis. No dissection or occlusion. External carotid arteries: Unremarkable. No occlusion. Vertebral arteries: Unremarkable. No significant stenosis. No dissection or occlusion. Aortic Arch and Mediastinum: Partially visualized aortic arch unremarkable without evidence of aneurysm. Origins of the great vessels unremarkable. Other: Arterial phase soft tissues of the neck and chest are unremarkable. Bones: No suspicious osseous lesion. Moderate degenerative changes. IMPRESSION: No significant intracranial arterial abnormality is seen. No significant abnormality is seen within the arteries of the neck. Any quantitative measurements of stenosis were performed using NASCET criteria. Dictated by: Anthony Curry M.D. on 11/22/2024 at 22:27 CT scan - head: Radiologist's Impression: PROCEDURE: CT HEAD/BRAIN WO CON INDICATIONS: left weakness difficulty swallowing TECHNIQUE: Noncontrast 4.5 mm thick angled axial sections acquired from the foramen magnum to the vertex, with coronal and sagittal reformats. For radiation dose reduction, the following was used: automated exposure control, adjustment of mA and/or kV according to patient size. COMPARISON: [facility], CT, CT HEAD WITHOUT CONTRAST, 09/28/2021, 0:55. FINDINGS: Image quality: Diagnostic. CSF spaces: Basal cisterns are patent. No extra-axial fluid collections. Ventricles are normal in size and shape. Brain: No midline shift. No intracranial mass effect or hemorrhage. No area of hypodensity in a large vascular distribution to suggest acute infarction. Periventricular hypodensity consistent with chronic microvascular ischemic change. Age-related parenchymal loss. Skull and face: Calvarium and visualized facial bones are intact, without suspicious lesions. Sinuses: Mucosal thickening in the left maxillary sinus. Mastoids are clear. IMPRESSION: No acute intracranial pathology. Dictated by: Anthony Curry M.D. on 11/22/2024 at 22:24 ECG Data Attestation: I personally reviewed and interpreted this ECG as follows: Interpretation: Sinus rhythm rate 93 CA interval 156 QRS [address] changes similar to previous EKGs in 2021 MDM Narrative Medical decision making narrative: MDM CC: Difficulty swallowing weakness Complicating co-morbidities: ADHD hyperlipidemia Data collected from: Patient Medical records reviewed: No significant records a couple of ED visits in and 1 in 2022 Differential considered: CVA Toxicology Exam documented above, pertinent findings include: Alert slightly anxious 69-year-old female moving all extremities NIH 1 for mild slurring of speech but no facial droop no dysarthria Lab Test results independently reviewed as above. Pertinent findings: CBC no leukocytosis no anemia platelets 254 CMP sodium 134 no other electrolyte abnormalities no TYLER glucose 105 Bilirubin liver enzymes within normal limits Troponin negative Independently reviewed EKG as above Sinus rhythm no ischemia Imaging studies independently reviewed: CT head no intracranial hemorrhage CT angio no large vessel occlusion Consultations: [ ] Treatments: Aspirin Re-evaluations: [ ] Discussion: Patient 69-year-old female who has been having some balance issues dizziness ongoing for about a week. Now maybe having some difficulty swallowing she has some mild slurring of speech on exam. She is not a candidate for thrombolysis NIH of 1 and last known well is really last week. Blood work is overall reassuring head CT and CT angio do not show any significant abnormalities. Awaiting drug screen she is ambulating in the ED Singed out to Dr. Tilley <Dom Tilley MD - Last Filed: 11/23/24 00:21> Lab Data Labs: Lab Results 11/22/24 11/22/24 11/22/24 Range/Units 20:43 21:40 22:58 WBC 6.3 (4.5-11.0) X10^3/uL RBC 3.85 L (4.0-5.2) X10^6/uL Hgb 11.8 L (12.0-16.0) g/dL Hct 34.1 L (36-46) % MCV 88.5 (80-100) fL MCH 30.7 (26-34) PG MCHC 34.7 (30-36) % RDW 14.4 (11.6-14.8) % Plt Count 254 (150-400) X10^3/uL Neut % (Auto) 71.0 (50-75) % Lymph % (Auto) 21.5 L (25-40) % [place] % (Auto) 6.7 (3-14) % Eos % (Auto) 0.0 L (2-4) % Baso % (Auto) 0.8 (0-2) % Neut # (Auto) 4500 (2995-1123) /uL Lymph # (Auto) 1400 (0215-5240) /uL [place] # (Auto) 400 (0-900) /uL Eos # (Auto) 0 (0-450) /uL Baso # (Auto) 0 (0-100) /uL PT 10.9 (9.4-12.5) SECONDS INR 1.0 (0.9-1.3) APTT 29 (25.1-36.5) SECONDS Sodium 134 L (137-145) mmol/L Potassium 3.8 (3.4-5.1) mmol/L Chloride 100 (98-107) mmol/L Carbon Dioxide 28 (22-32) mmol/L BUN 14 (7-17) mg/dL Creatinine 0.87 (0.52-1.04) mg/dL Estimated GFR > 60 (>60) mL/min BUN/Creatinine Ratio 16.1 (6-22) Glucose 105 H (70-99) mg/dL Calcium 9.2 (8.4-10.2) mg/dL Total Bilirubin 0.4 (0.2-1.3) mg/dL AST 32 (14-36) IU/L ALT 20 (<35) IU/L Alkaline Phosphatase 87 (38-126) U/L Total Creatine Kinase 85 (30-135) U/L Troponin I < 0.012 (0.01-0.034) ng/mL Total Protein 6.5 (6.3-8.2) g/dL Albumin 4.1 (3.5-5.0) g/dL Globulin 2.4 (1.7-4.1) g/dL Albumin/Globulin Ratio 1.7 (1.0-2.8) Urine Color Yellow Urine Appearance Clear Urine pH 8.0 (4.5-8.0) Ur Specific [place] <=1.005 (1.000-1.035) Urine Protein Negative (Negative) Urine Glucose (UA) Negative (Negative) g/dL Urine Ketones Negative (NEGATIVE) Urine Occult Blood Negative (Negative) Urine Nitrate Negative (Negative) Urine Bilirubin Negative (NEGATIVE) Urine Urobilinogen 0.2 (0.2) E.U./dL Ur Leukocyte Esterase Trace H (NEGATIVE) Urine RBC None seen (0-5/HPF) Urine WBC 0-1/hpf (0-5/HPF) Ur Squamous Epith Cells 0-1 /hpf (0-5/HPF) Urine Bacteria None seen (None) Ur Culture Indicated? Cult not indicated Vol Urine Centrifuged 10ml (spun) U Opiates 300ng/mL cut Negative (Negative) Ur Oxycodone Screen Negative (Negative) Urine Methadone Screen Negative (Negative) Ur Barbiturates Screen Negative (Negative) U Tricyclic Antidepress Negative (Negative) Ur Phencyclidine Scrn Negative (Negative) Ur Amphetamines Screen Positive H (Negative) U Methamphetamines Scrn Negative (Negative) Ur MDMA Scrn (Ecstasy) Negative (Negative) U Benzodiazepines Scrn Negative (Negative) Urine Cocaine Screen Negative (Negative) U Marijuana (THC) Screen Positive H (Negative) Urine Specific [place] (Normal) Ethyl Alcohol < 10 (<10) mg/dL Ur Creatinine (Normal) SARS-CoV-2 (PCR) Negative (Negative) 11/22/24 Range/Units 22:58 WBC (4.5-11.0) X10^3/uL RBC (4.0-5.2) X10^6/uL Hgb (12.0-16.0) g/dL Hct (36-46) % MCV (80-100) fL MCH (26-34) PG MCHC (30-36) % RDW (11.6-14.8) % Plt Count (150-400) X10^3/uL Neut % (Auto) (50-75) % Lymph % (Auto) (25-40) % [place] % (Auto) (3-14) % Eos % (Auto) (2-4) % Baso % (Auto) (0-2) % Neut # (Auto) (0370-5389) /uL Lymph # (Auto) (6031-0641) /uL [place] # (Auto) (0-900) /uL Eos # (Auto) (0-450) /uL Baso # (Auto) (0-100) /uL PT (9.4-12.5) SECONDS INR (0.9-1.3) APTT (25.1-36.5) SECONDS Sodium (137-145) mmol/L Potassium (3.4-5.1) mmol/L Chloride (98-107) mmol/L Carbon Dioxide (22-32) mmol/L BUN (7-17) mg/dL Creatinine (0.52-1.04) mg/dL Estimated GFR (>60) mL/min BUN/Creatinine Ratio (6-22) Glucose (70-99) mg/dL Calcium (8.4-10.2) mg/dL Total Bilirubin (0.2-1.3) mg/dL AST (14-36) IU/L ALT (<35) IU/L Alkaline Phosphatase (38-126) U/L Total Creatine Kinase (30-135) U/L Troponin I (0.01-0.034) ng/mL Total Protein (6.3-8.2) g/dL Albumin (3.5-5.0) g/dL Globulin (1.7-4.1) g/dL Albumin/Globulin Ratio (1.0-2.8) Urine Color Urine Appearance Urine pH Normal (4.5-8.0) Ur Specific [place] (1.000-1.035) Urine Protein (Negative) Urine Glucose (UA) (Negative) g/dL Urine Ketones (NEGATIVE) Urine Occult Blood (Negative) Urine Nitrate (Negative) Urine Bilirubin (NEGATIVE) Urine Urobilinogen (0.2) E.U./dL Ur Leukocyte Esterase (NEGATIVE) Urine RBC (0-5/HPF) Urine WBC (0-5/HPF) Ur Squamous Epith Cells (0-5/HPF) Urine Bacteria (None) Ur Culture Indicated? Vol Urine Centrifuged U Opiates 300ng/mL cut (Negative) Ur Oxycodone Screen (Negative) Urine Methadone Screen (Negative) Ur Barbiturates Screen (Negative) U Tricyclic Antidepress (Negative) Ur Phencyclidine Scrn (Negative) Ur Amphetamines Screen (Negative) U Methamphetamines Scrn (Negative) Ur MDMA Scrn (Ecstasy) (Negative) U Benzodiazepines Scrn (Negative) Urine Cocaine Screen (Negative) U Marijuana (THC) Screen (Negative) Urine Specific [place] Normal (Normal) Ethyl Alcohol (<10) mg/dL Ur Creatinine Normal (Normal) SARS-CoV-2 (PCR) (Negative) Imaging Data Chest x-ray: My Impression: New acute cardiopulmonary process. MDM Narrative Medical decision making narrative: MDM CC: Difficulty swallowing weakness Complicating co-morbidities: ADHD hyperlipidemia Data collected from: Patient Medical records reviewed: No significant records a couple of ED visits in and 1 in 2022 Differential considered: CVA Toxicology Exam documented above, pertinent findings include: Alert slightly anxious 69-year-old female moving all extremities NIH 1 for mild slurring of speech but no facial droop no dysarthria Lab Test results independently reviewed as above. Pertinent findings: CBC no leukocytosis no anemia platelets 254 CMP sodium 134 no other electrolyte abnormalities no TYLER glucose 105 Bilirubin liver enzymes within normal limits Troponin negative Independently reviewed EKG as above Sinus rhythm no ischemia Imaging studies independently reviewed: CT head no intracranial hemorrhage CT angio no large vessel occlusion Consultations: [ ] Treatments: Aspirin Re-evaluations: [ ] Discussion: Patient 69-year-old female who has been having some balance issues dizziness ongoing for about a week. Now maybe having some difficulty swallowing she has some mild slurring of speech on exam. She is not a candidate for thrombolysis NIH of 1 and last known well is really last week. Blood work is overall reassuring head CT and CT angio do not show any significant abnormalities. Awaiting drug screen she is ambulating in the ED Singed out to Dr. Tilley Order the chest x-ray that showed no acute cardiopulmonary process. Upon re-evaluation, patient is swallowing liquids. Patient does not appear to have any slurring of speech upon reexamination. She does complain of some muscular pain over her left trapezius muscle area. The patient is eager to be discharged. Discharge Plan Departure Patient Disposition: Home Clinical Impression: Difficulty in swallowing Qualifiers: Dysphagia type: unspecified Qualified Code(s): R13.10 - Dysphagia, unspecified Instructions: Oropharyngeal Dysphagia Activity Restrictions/Additional Instructions: Use muscle relaxants as needed. May need a barium swallowing study and an MRI of the brain . Please follow up with PCP for referrals. Come back to ER if swallowing worsens. Less likely a stroke. Prescriptions: New cyclobenzaprine 10 mg tablet 10 mg PO BEDTIME PRN (Reason: muscle spasm) Qty: 7 0RF cyclobenzaprine 10 mg tablet 10 mg PO BEDTIME PRN (Reason: muscle spasm) Qty: 7 0RF No Action lamotrigine [Lamictal] 100 MG tablet 200 mg PO QDAY Qty: 0 dextroamphetamine-amphetamine [Adderall XR] 10 MG capsule,extended release 24hr 10 mg PO BID Qty: 1 escitalopram oxalate [Lexapro] 20 mg Tablet 20 mg PO DAILY ondansetron 4 mg tablet,disintegrating 4 mg PO Q6H PRN (Reason: nausea and vomiting) Qty: 14 0RF omeprazole 20 mg capsule,delayed release(DR/EC) 20 mg PO DAILY Patient Comments: take 1 capsule by mouth every morning before breakfast atorvastatin 40 mg tablet 40 mg PO DAILY albuterol sulfate 90 mcg/actuation HFA aerosol inhaler 2 puff inhalation Q4-6H PRN Referrals: Alka Dallas MD [Primary Care Provider, Family Practice] Stand Alone Forms: Patient Portal/API
[2024-11-22 21:16] LABS: Hematocrit 34.1 % (36-46); Hemoglobin 11.8 g/dL (12.0-16.0); Mean Corpuscular HGB Conc 34.7 % (30-36); Mean Corpuscular Hemoglobin 30.7 PG (26-34); Mean Corpuscular Volume 88.5 fL (80-100); Platelet Count 254 X10^3/uL (150-400)
[2024-11-22 21:17] LABS: Add Manual Diff / Slide Review NO; Lymphocytes Absolute Auto 1400 /uL (1100-4500)
[2024-11-22 21:19] LABS: INR 1.0 (0.9-1.3); Prothrombin Time 10.9 SECONDS (9.4-12.5)
[2024-11-22 21:22] LABS: Alanine Aminotransferase 20 IU/L (<35); Albumin 4.1 g/dL (3.5-5.0); Albumin Globulin Ratio 1.7 (1.0-2.8); Alkaline Phosphatase 87 U/L (38-126); Blood Urea Nitrogen 14 mg/dL (7-17); Calcium 9.2 mg/dL (8.4-10.2); Carbon Dioxide 28 mmol/L (22-32); Chloride 100 mmol/L (98-107); Creatine Kinase 85 U/L (30-135); Estimated Glomerular Filt Rate > 60 mL/min (>60); Ethanol (ETOH) < 10 mg/dL (<10); Globulin 2.4 g/dL (1.7-4.1); Glucose 105 mg/dL (70-99); HEMOLYSIS < 15 (0-50); PTT Partial Thromboplastin Tim 29 SECONDS (25.1-36.5); Potassium 3.8 mmol/L (3.4-5.1); Sodium 134 mmol/L (137-145); Total Protein 6.5 g/dL (6.3-8.2)
--- NOTE | 2024-11-22 21:26 | PC.NURSE ---
pt reporting two days of difficulty swallowing and slurred speech. minor slurred speech noted. no obvious deficits noted. [facility] 1
[2024-11-22 21:33] LABS: Troponin I < 0.012 ng/mL (0.01-0.034)
[2024-11-22 22:09] LABS: COVID19 -Nasal RAPID Negative (Negative)
[2024-11-22] MEDS: SODIUM CHLORIDE 0.9% 1,000 ML 1000 ML IV (23:03)
[2024-11-22] MEDS: ASPIRIN 81 MG CHEW TAB 324 MG PO (23:03)
[2024-11-22 23:04] LABS: Appearance Urine UA CLEAR; Bilirubin Urine UA NEGATIVE (NEGATIVE); Color Urine UA YELLOW; Glucose Urine UA NEGATIVE (Negative); Ketones Urine UA NEGATIVE (NEGATIVE); Leukocyte Esterase Urine UA TRACE (NEGATIVE); Nitrite Urine UA NEGATIVE (Negative); Occult Blood Urine UA NEGATIVE (Negative); Protein Urine UA NEGATIVE (Negative); Specific Gravity Urine UA <=1.005 (1.000-1.035); Urobilinogen Urine UA 0.2 E.U./dL (0.2)
[2024-11-22 23:05] LABS: pH Urine UA 8.0 (4.5-8.0)
[2024-11-22 23:07] LABS: Ur Creatinine Normal (Normal); Ur Specific Gravity Normal (Normal); Urine MDMA Negative (Negative); Urine Methamphetamines Negative (Negative); Urine THC Positive (Negative); Urine Tricyclic Antidepressant Negative (Negative); Urine pH Normal (Normal)
[2024-11-22 23:12] LABS: Culture Indicated Urine Cult Not Indicated
--- NOTE | 2024-11-22 23:26 | DI.RAD.S_ITS ---
PROCEDURE: XR CHEST 1V INDICATIONS: difficulty swallowing TECHNIQUE: One view of the chest was acquired. COMPARISON: [facility], CT, CT ANGIO HEAD AND NECK, 11/22/2024, 21:24. [facility], CR, XR CHEST 2V, 03/24/2018, 10:57. FINDINGS: Surgical changes and devices: Cholecystectomy clips. Lungs and pleura: Lungs are clear. No pleural effusions or pneumothorax. Mediastinum: Mediastinal contours appear normal. Heart size is normal. Bones and chest wall: No suspicious bony lesions. Overlying soft tissues appear unremarkable. IMPRESSION: No acute cardiopulmonary abnormality is seen. Dictated by: Anthony Curry M.D. on 11/23/2024 at 0:20 Approved by: Anthony Curry M.D. on 11/23/2024 at 0:20
[2024-11-23] VITALS: BP 126/62; PULSE 78; RESP 18; O2SAT 95
[2024-11-23] MEDS: CYCLOBENZAPRINE 10 MG PREPACK 1 BOTTLE MISC (00:15)
== END 2024-11-23 00:23 | disposition home or self-care (01) ==
PROVIDERS: Emergency Medicine; Emergency Provider Family Medicine; Family Provider Psychiatry & Neurology Psychiatry; PCP Family Medicine
DX: R13.10 Dysphagia, unspecified (principal); R29.701 NIHSS score 1
CPT/HCPCS: 36415; 70450; 70496; 70498; 71045; 80053; 80305; 80320; 81001; 82550; 84484; 85025; 85610; 85730; 87635; 93005; 99285; Q9967